=== PATIENT | female | born 1955 | race Caucasian/White ===

== ENCOUNTER 2018-06-25 17:35 | Observation (INO) | payer MEDICARE, MEDICAID ==
[~2018-06-25] VITALS: Ht 165.1 cm; Wt 118.4 kg
[~2018-06-25 17:35] MED LIST: AMLODIPINE BESY10 MG PO; AMLODIPINE BESYL5 MG PO; ATENOLOL100 MG PO; ATORVASTATIN CA10 MG PO; CETIRIZINE HCL10 MG PO; CINNAMON500 MG PO; DAILY MULTIPLE1 EACH PO; DOXAZOSIN MESYLA4 MG PO; DULOXETINE HCL30 MG PO; FLOVENT HFA12 G1 INH; FLUTICASONE PRO16 GM NS; GABAPENTIN300 MG PO; LISINOPRIL20 MG PO; METOPROLOL SUC100 MG PO; NEURONTIN300 MG PO; PAROXETINE HCL40 MG PO; PREDNISONE20 MG PO; PROVENTIL HFA6.7 GM INH; VITAMIN B-121000 MCG PO; VITAMIN D-32000 UNI1 PO; WARFARIN SODIUM5 MG PO
[2018-06-25] MEDS ORDERED: COUMADIN5 MG PO (17:54)
--- NOTE | 2018-06-25 22:19 | NUR ---
PT ARRIVED TO ROOM 119 FROM ED, FOLLOWING A FALL ON THE ICE. XRAYS REVEALED NO FRACTURES. PT REQUIRED MULT STAFF TO SLIDE HER OVER TO THE BED FROM THE STRETCHER, PT SCREAMED IN PAIN DURING EVENT. ONCE IN BED AND SITUATED, PT PAIN SUBSIDED. PT LIVES ALONE, AND UNABLE TO STAND D/T PAIN. PT REQUESTED LUNCH BOX, AND WATER. CALL LIGHT WITHIN REACH.
--- NOTE | 2018-06-25 23:44 | NUR ---
PT ARRIVED TO FLOOR VIA STRETCHER. PT TRANSFERED TO BED WITH MULTIPLE STAFF ASSISTANCE. PT VOCALIZED VERY LOUDLY DURING TRANSFER. STATES PAIN 10/10 WITH MOVEMENT, 0 IF NO MOVEMENT. PT OFFERED COMMODE, SHE STATES THAT SHE CANNOT STAND AT THIS TIME. PT ASSISTED TO TAKE UNDERGARMENTS OFF. ATTENDS PLACED FOR OCCASIONAL DRIBBLING INCONTINENCE PER PT. NO VISIBLE BRUISING OR DEFORMITY TO HIP. CMS INTACT. PT REQUESTS 7-UP, PROVIDED. PT DENIES FURTHER NEEDS AT THIS TIME. CALL LIGHT IN REACH.
--- NOTE | 2018-06-26 01:49 | NUR ---
PT UTILIZES CALL LIGHT, REQUESTS TO USE BSC. PT ASSISTED TO TRY TO GET UP WITH 3 PA. PT VOCALIZING/CALLING OUT LOUDLY IN PAIN THROUGHOUT ATTEMPT. PT GRABBING FORCEFULLY ON THIS WRITERS ARM. PT SHOUTING "I CAN'T DO IT" REPEATEDLY. PT REQUESTS TO USE THE BEDPAN VERSUS BSC. PT APOLOGETIC. ATTENDS WET WITH URINE. PT USES BEDPAN APPROPRIATELY. PT ASSESSMENT COMPLETE. LIDOCAINE PATCH IN PLACE TO L HIP. PT REQUESTS WARM COMPRESS. WARM COMPRESS PLACED BELOW LIDOCAINE PATCH. PT INSTRUCTED NOT TO PLACE COMPRESS OVER LIDOCAINE PATCH, UNDERSTANDING STATED. CMS INTACT TO LLE, PT DENIES NUMBNESS OR TINGLING. PT REQUESTS BENADRYL TO HELP SLEEP, ADMINISTERED. PT DENIES FURTHER NEEDS AT THIS TIME. CALL LIGHT WITHIN REACH.
--- NOTE | 2018-06-26 06:00 | NUR ---
PT UTILIZES CALL LIGHT, STATES THAT PAIN IS BEGINNING TO INCREASE EVEN WHILE SHE IS STILL. RATES PAIN 5/10 TO L HIP. PRN NORCO ADMINISTERED. PT REQUESTS TO USE THE BED CONLEY. PT ROLLS SIDE TO SIDE WELL, ALTHOUGH STILL SHOUTING IN PAIN WITH MOVEMENT. PT REPORTS THAT IT FEELS BETTER IF KNEE AND LEG ARE IN BENT POSITION. PILLOWS REMAIN UNDER L KNEE. PT DENIES FURTHER NEEDS AT THIS TIME. CALL LIGHT WITHIN REACH.
--- NOTE | 2018-06-26 07:29 | NUR ---
PT IN BED, AWAKE, ALERT. RECIEVED BEDSIDE REPORT FROM BRENDAN KOENIG. PT HAS PERSONAL SUPPLIES AND CALL LIGHT IN REACH.
--- NOTE | 2018-06-26 08:38 | NUR ---
PATIENT SITTING UP IN BED EATING BREAKFAST, REFUSED TO GET UP TO CHAIR. PATIENT WANTS BEDBATH LATER TODAY. CALL LIGHT IN REACH. NO FURTHER NEEDS AT THIS TIME.
--- NOTE | 2018-06-26 09:09 | NUR ---
PT TRANSFERED FROM BED TO RECLINER. USED FWW, AND 2 PERSON ASSIST. PT YELLED OUT, GRIMACING, GROANING, BUT WAS ABLE TO MOVE SELF FROM LAYING TO SITTING UP ON EDGE OF BED, AND WAS ABLE TO STAND, AND SLOWLY MOVE SELF FROM BED TO RECLINER. PT EXPRESSED RELIEF ONCE SITTING DOWN IN RECLINER, STATED THAT SHE FELT MUCH BETTER ONCE SHE SAT DOWN. PERSONAL SUPPLIES AND CALL LIGHT IN REACH.
--- NOTE | 2018-06-26 09:44 | NUR ---
PATIENT IN CHAIR WATCHING TV. CALL LIGHT IN REACH. NO FURTHER NEEDS AT THIS TIME.
--- NOTE | 2018-06-26 09:55 | NUR ---
PT SITTING UP IN RECLIER. REPORTED PAIN TO LEFT HIP AND LEFT LEG 5/10. GAVE NORCO 10/325 MG PO PRN. PT DENIED OTHER NEEDS AT THIS TIME. PERSONAL SUPPLIES AND CALL LIGHT IN REACH.
--- NOTE | 2018-06-26 10:05 | NUR ---
SPOKE WITH PATIENT IN ROOM. PATIENT SITTING UP IN CHAIR. PATIENT LIVES ALONE. HAS ELDERLY PARENTS IN AREA THAT LIVE IN ASSISTED LIVING. SHE STATES SHE HAS OTHER FAMILY IN [facility]. SHE HAS A FEW NEIGHBORS WHO HELP HER ON OCCASION. SHE IS DISABLED AND SHE IS WONDERING IF SHE WILL NEED A WALKER AT HOME. SHE STATES SHE IS NOT SURE HOW SHE CAN GET INTO HER APARTMENT, IT IS VERY ICY. SHE STATES SHE IS TRYING TO FIND SOMEONE WITH A [address] WHO CAN GET HER CLOSE TO HER DOOR. SHE STATES SHE HAS BEEN VERY SECLUDED AT HOME DUE TO THE WEATHER LATELY. SHE STATES SHE HAS CUT BACK ON SMOKING CIGARETTES DUE TO THIS AND SHE WANTS TO QUIT SMOKING COMPLETELY. WE DISCUSSED THIS, SHE WANTS TO TRY "[place]" BUT STATES SHE HAS A DR APPOINTMENT WITH PCP DR SMITH NEXT WEEK AND SHE WILL TALK WITH HER IF SHE NEEDS HELP. SHE STATES SHE HAS SOME INCONTINENCE ISSUES, WEARS A PAD FOR THIS. PATIENT BECAME VERY EMOTIONAL, CRYING AND TALKING ABOUT HOW SHE HAS BEEN VERY DEPRESSED. THAT SHE USED TO BE VERY OUTGOING AND WORKED IN [employer]. SHE STATES SHE HAS LET SO MANY THINGS "SLIDE IN MY LIFE". SHE STATES HER APARTMENT IS "CRAMMED" WITH BOXES AND IS VERY DIRTY. SHE WANTS HELP IN FIGURING OUT HOW TO GET IT CLEANED OUT. WE DISCUSSED THAT I CAN SET UP CHW SUPPORT THROUGH HER PCP AND THEY CAN WORK WITH HER ON RESOURCES. WE DISCUSSED SHE COULD SEEK HELP FOR DEPRESSION THROUGH LOCAL COUNSELORS AND/OR MENTAL HEALTH OFFICE. SHE IS WILLING TO WORK WITH SOMEONE. SHE STATES SHE FEELS "READY TO MAKE CHANGES". WE DISCUSSED THAT OUR GOAL IS WORK ON HER GOALS. SHE FEELS SAFE AT HER HOME AND WANTS TO RETURN THERE. WE DISCUSSED THAT WE WILL WORK WITH HER SO SHE CAN BE HEALTHY POSSIBLE AND BE ABLE TO TAKE CARE OF HERSELF AFTER DISCHARGE. WE DISCUSSED THAT SHE NEEDS TO UNDERSTAND ALL CARE HERE, TESTS, ETC. AND MEDICATIONS THAT SHE IS TAKING. WE DISCUSSED WE WILL HELP HER WITH UNDERSTANDING WHY SHE IS ON THE MEDICATIONS AND SIDE EFFECTS. PATIENT IS ENCOURAGED TO ASK QUESTIONS AND IF ANYTHING ISN'T UNDERSTOOD TO FEEL SHE CAN KEEP ASKING. WE DISCUSSED WHAT TO DO WHEN SHE GETS HOME, INCLUDING SET UP APPOITNMENT WITH CHW VISIT, LET US KNOW IF SHE HAS NO TRANSPORTTION TO HER DR VISIT, AND WHO TO CALL IF SHE HAS PROBLEMS. PATIENT STATES UNDERSTANDING TO ALL WE DISCUSSED.
[2018-06-26] MEDS ORDERED: PAROXETINE HCL40 MG PO (12:05)
--- NOTE | 2018-06-26 14:03 | NUR ---
PATIENT IN BED WATCHING TV. FRESH WATER GIVEN. CALL LIGHT IN REACH. NO FURTHER NEEDS AT THIS TIME.
--- NOTE | 2018-06-26 17:16 | NUR ---
PATIENT IN BED WATCHNG TV. DINNER IN ROOM. FRESH WATER GIVEN. CALL LIGHT IN REACH. NO FURTHER NEEDS AT THIS TIME.
--- NOTE | 2018-06-26 18:23 | NUR ---
PT UP WITH FWW WITH 1-2 PERSON ASSIST. PT EXPRESSED PAIN TO LEFT HIP AND LEG, THAT INCREASED WITH MOVEMENT, BUT PT DID EXPRESS THAT THIS PAIN GRADUALLY DECREASED OVER COURSE OF THE DAY, SHE MOVED AND SPENT TIME UP OUT OF BED AND WORKED WITH PHYSICAL THERAPY. PT TOOK A SHOWER THIS AM. ONLY REQUIRED ASSISTANCE WITH WASHING HER LOWER LEGS AND FEET WITH THIS. PT TOLERATED REGULAR DIET WELL. DID REQUIRE PRN NORCO 10/325 APROXIMATLEY EVERY 4 HOURS. PT DID ALSO START NICOTINE REPLACEMENT THIS SHIFT, HAS PATCH TO LEFT DELTOID AREA. PT IS UNSTEADY AT TIMES WHEN UP WITH FWW, LETS GO OF WALKER AT TIMES. REQUIRED REMINDERS NOT TO DO THIS. PT ALERT, ORIENTED X 4, ANXIOUS AT TIMES. PT REPORTS THAT SHE QUIT SMOKING 4 DAYS AGO. LUNGS CTA, PT HAS A PRODUCTIVE COUGH THIS AFTERNOON.
--- NOTE | 2018-06-26 19:28 | NUR ---
RECIEVED BEDSIDE REPORT FROM JORDAN CARDONA. PATIENT SITTING UP IN CHAIR. WHITE BOARD UPDATED. THIS RN ASSISTED PATIENT TO RESTROOOM A 1PA WITH FWW. PATIENT SAFELY BACK INTO BED. CALL LIGHT WITHIN REACH. NO MORE NEEDS AT THIS TIME. DINNER TRAY REMOVED FROM BEDSIDE.
--- NOTE | 2018-06-26 20:15 | NUR ---
ROUNDED ON PATIENT. [place]LL [place] MAGISTRATE PROVIDED PER PATIENT REQUEST. FRESH WATER PROVIDED TO PATIENT PER PATIENT REQUEST. CALL LIGHT WITHIN REACH. NO MORE NEEDS AT THIS TIME.
--- NOTE | 2018-06-26 21:50 | NUR ---
ASSESSMENT COMPLETE. PATIENT REPORTS "5/10" PAIN IN LEFT HIP, PRN PAIN MEDICATION ADMINISTERED. MEDICATION ADMINISTERED PER MAR ORDER. PATINET DENIES CHEST PAIN, SOB, OR DIFFICULTY BREATHING. PATINET DENIES ABDOMINAL PAIN, ACTIVE BOWEL TONES PRESENT. PILLOW PLACED UNDERNEATH LEFT LEG BY PATIENT. CALL LIGHT WITHIN REACH. NO MORE NEEDS AT THIS TIME.
--- NOTE | 2018-06-27 00:10 | NUR ---
ROUNDED ON PATIENT LAYING AWAKE IN BED. PATIENT DENIES PAIN. PATIENT DENIES WANTING MILK. THIS RN SUGGESTED RAISE THE HEAD OF THE BED UP, PATIENT STATED THIS WILL TRY THIS. CALL LIGHT WITHIN REACH. NO MORE NEEDS AT THIS TIME.
--- NOTE | 2018-06-27 02:55 | NUR ---
rounded on patient resting in bed with eyes closed, respiratory rate is even and unlabored. call light within reach. no more needs at this time.
--- NOTE | 2018-06-27 04:50 | NUR ---
ASSESSMENT COMPLETE, REFER TO ASSESSMENT. PATIENT REPORTS "5/10" PAIN IN LEFT HIP, PATIENT DESCRIBES PAIN "TIGHT", PRN PAIN MEDICATION PROVIDED. PATIENT DENIES CHEST PAIN, SOB OR DIFFICULT BREATHING. PATIENT REPORTS THAT HEARTBURN THAT PATIENT WAS EXPERIENCING EARILER IN SHIFT IMPROVED AFTER RECEVING SPRITE. EXPIRATORY WHEEZE NOTED, REFER TO ASSESSMENT, THIS RN NOTIFED RT. FRESH ICE PROVIDED TO PATIENT PER PATIENT REQUEST. PATIENT DENIES HAVING PRODUCTIVE COUGH THIS TIME. CALL LIGHT WITHIN REACH. NO MORE NEEDS AT THIS TIME.
--- NOTE | 2018-06-27 05:34 | NUR ---
PATIENT SLEPT ON AND OFF THROUGHOUT THE NIGHT. PRN PAIN MEDICATION X2. SBA TO 1PA WITH FWW. REGULAR DIET. REPORTED HEARTBURN LAST NIGHT, SPRITE PROVIDED, PATIENT REPORTED FEELING BETTER. PT/OT. RIGHT ARM RESTRICTION. USES CALL LIGHT APPROPRIATELY. ATTENDS IN PLACE.
--- NOTE | 2018-06-27 07:22 | NUR ---
RECIEVED BEDSIDE REPORT FROM BRENDAN DIAS. PT IN BED. PT UP TO BATHROOM TO VOID WITH STANDBY ASSIST USING FWW. PT THEN BACK TO BED. PERSONAL SUPPLIES AND CALL LIGHT IN REACH.
--- NOTE | 2018-06-27 10:07 | NUR ---
PAITENT UP TO SHOWER AND BACK TO CHAIR, 1PA FWW. LINENS CHANGED. FRESH WATER GIVEN. CALL LIGHT IN REACH. NO FURTHER NEEDS AT THIS TIME.
[2018-06-27] MEDS ORDERED: NICORETTE4 M2 BUCCAL (10:51)
[2018-06-27] MEDS ORDERED: GABAPENTIN100 MG PO (10:53)
[2018-06-27] MEDS ORDERED: HYDROCODON-ACE1 EAC8 PO (10:55)
[2018-06-27] MEDS ORDERED: NICOTINE PATCH1 EACH TD (10:55)
--- NOTE | 2018-06-27 11:24 | NUR ---
PT UP IN BATHROOM WITH OCCUPATIONAL THERAPY, DOING ADLS, BRUSHING TEETH. RATES PAIN TO LEFT HIP/LEG /. PT SMILING AND TALKING WITH OCCUPATIONAL THERAPIST.
--- NOTE | 2018-06-27 12:10 | NUR ---
THIS RN RETRIEVED PT'S HOME MEDICATION BAGS FROM ER DESK AND GAVE THESE TO PT. GAVE BAG # [id number], # [phone], AND # [id number].
--- NOTE | 2018-06-27 12:40 | NUR ---
FAXED CHART NOTES INCLUDING FACE SHEET, ORDER, H AND P, PROG NOTES, PT AND OT EVAL AND NOTES. RECIEVED FAX CONFIRMATION. TALKED WITH LILY FROM IN HOME AND SHE SAID IT MIGHT BE A BIT THEY ARE DOWN A PAINTER TODAY BUT WILL GET TO IT THIS AFTERNOON. I CALLED MARYSE BACK AND STATED THAT IF OK THEY PT IS JUST WANTING TO MOTOR VEHICLE LECTURER THE FWW AT THE STORE. MARYSE STATED THAT WOULD BE FINE.
[2018-06-27] MEDS ORDERED: METHYLPREDNISOLO4 M1 PO (13:25)
--- NOTE | 2018-06-27 13:42 | NUR ---
PT IN BED. REPORTS PAIN IS WELL CONTROLLED. IV TO LEFT AC D/C'D. PT DENIED NEEDS.
== END 2018-06-27 14:00 | disposition home or self-care (01) ==
LOC: ED 17:35 → MS 17:37
PROVIDERS: ADMIT Internal Medicine
DX: M25.552 Pain in left hip (principal); R26.81 Unsteadiness on feet; I10 Essential (primary) hypertension; E78.5 Hyperlipidemia, unspecified; F17.210 Nicotine dependence, cigarettes, uncomplicated; E66.9 Obesity, unspecified; I97.2 Postmastectomy lymphedema syndrome; W00.0XXA Fall on same level due to ice and snow, initial encounter; Y92.007 Garden or yard of unspecified non-institutional (private) residence as the place of occurrence of the external cause; Z86.718 Personal history of other venous thrombosis and embolism; Z79.01 Long term (current) use of anticoagulants; Z85.3 Personal history of malignant neoplasm of breast; Z88.1 Allergy status to other antibiotic agents; Z88.8 Allergy status to other drugs, medicaments and biological substances; Z79.51 Long term (current) use of inhaled steroids; Z79.899 Other long term (current) drug therapy; Z68.41 Body mass index [BMI] 40.0-44.9, adult
CPT/HCPCS: 36415; 72131; 73502; 73700; 80053; 85025; 85610; 96374; 96375; 96376; 97110; 97116; 97162; 97165; 99285-25; 99406; G0378; J1170; J2920; J2930; J3010; Q0163

== ENCOUNTER 2023-06-07 04:55 | Observation (INO) | payer MEDICARE, OTHER ==
[~2023-06-07] VITALS: Ht 167.6 cm; Wt 124.0 kg
--- NOTE | ~2023-06-07 | CONS ---
[facility] [address] [place], [place] [address] Draft DATE OF CONSULTATION: 06/07/2023 PROBLEM: Blunt trauma, right anterior chest wall with large hematoma, very symptomatic. HISTORY OF PRESENT ILLNESS: This morbidly obese 67-year-old white woman is chronically anticoagulated with Coumadin for reasons that are somewhat unclear, but not related to heart valve replacement or chronic atrial fibrillation. She has been anticoagulated for a number of years. She has a distant history of advanced breast cancer, having undergone bilateral mastectomies with adjuvant therapy nearly 30 years ago. Her original operation was at [facility]. She had open heart surgery 15 years ago for reasons that are uncertain. At that time, she was said to have a "blood clot in relation to a Port-A-Cath that was placed in the left subclavian area." She has been on warfarin since that time. Her primary provider is Dr. Acevedo. The patient has had arm edema, particularly on the right side, but also has had some left lower extremity edema for which evaluation has not yet been undertaken. This has been going on since February. She presented to the emergency room after falling in her bathroom, striking her right anterior chest wall on the corner of a sink. She did not have other injuries, specifically, no head trauma or loss of consciousness or other similar problem. She was found by Dr. Harley, emergency room physician to have a rather large hematoma of the right anterior chest wall and on that basis, a CT scan of the chest as well as head was performed. The head showed no sign of intracranial bleeding nor sign of other acute injury though volume loss of brain tissue was noted otherwise. There was a significant hematoma of the soft tissue of the right anterior chest wall, not far from the midline and approximately a handbreadth below the clavicle proper. There was not thought to be any sign of rib fracture based on the interpretation. A small stellate skin tear was noted as well. The patient has had significant pain and a sensation that the hematoma was growing. On that basis, I was consulted by Dr. Harley. My discussion with her notes that she has significant pain and worsen probably by her underlying general anxiety. Initiation of fresh frozen plasma to reverse her anticoagulation the quickest was recommended by me to the emergency room physician. Additionally, I recommend a repeat CBC be undertaken. Her initial hematocrit was 39.0, subsequent 33.1. A tox screen was essentially negative. Platelet count was normal at 246,000. An EKG showed normal sinus rhythm, heart rate 75, Q-waves in septal leads was consistent with septal infarct in the past. There was normal ST-segment and T-waves. There was no sign of infarction. PATIENT NAME: LATHA QUINN CONSULTATION DATE OF : 55 REPORT #: [id number] PHYSICIAN: CECILE SCHULTE MD PCP: ALBINA ACEVEDO MD REPORT IS CONFIDENTIAL AND NOT TO BE RELEASED WITHOUT AUTHORIZATION [facility] [address] [place] [id number] Draft REVIEW OF SYSTEMS: She denies any back pain. Her pain is dominantly over the right anterior chest wall. She has described some left lower extremity swelling. She says the etiology of which is uncertain. She has had chronic right arm edema as well. PHYSICAL EXAMINATION: GENERAL: Very obese white woman who is anxious. Her BMI is 44 kg/m2. HEENT: Trachea is midline. She has no hoarseness. There is no jugular venous distention. CHEST: There is sign of bilateral mastectomy from the past. There is a sizable hematoma over her right anterior chest wall. There is no sign of extravasation of blood. There is some underlying ecchymosis. ABDOMEN: Very obese, but soft and easily palpated. No sign of palpable mass. EXTREMITIES: Her right arm has some edema. Upper extremities, right is more swollen than on the left. The lower extremities were not thoroughly examined at this time. IMAGING DATA: I reviewed her imaging studies, which included head CT and chest CT scan. The soft tissue swelling in the neck and presumed hematoma is well demonstrated. There is no sign of underlying parenchymal injury, pneumothorax or rib fracture that I can tell, though the ribs to have a peculiar hyper-calcification likely related to previous median sternotomy. ASSESSMENT: The patient has a ground level fall on full anticoagulation with a sizable hematoma of the right anterior chest wall. The main issue that is quite symptomatic for her. She lives alone, has never been and has lost family members in the past few years rendering her assistance rather minimal. Whether or not the hematoma should be drained is uncertain at this time. Reversal of her anticoagulation is appropriate under the circumstances of possible ongoing bleeding given the expanded hematoma as noted by Dr. Harley as well as her increased pain. Direct admission to hospital may be advisable. We will recheck her anticoagulation studies to assure that she has been fully reversed. The indication for ongoing anticoagulation remained somewhat mysterious. She denies any underlying coagulopathy (thrombophilic state) and the relationship of clotting to a previous Port-A-Cath of the left chest wall (long ago extracted) remains somewhat mysterious. The patient is poorly able to articulate the indication for anticoagulation itself. Additional notes from primary care provider may provide some insight to that. PATIENT NAME: LATHA QUINN CONSULTATION DATE OF : 55 REPORT #: [id number] PHYSICIAN: CECILE SCHULTE MD PCP: ALBINA ACEVEDO MD REPORT IS CONFIDENTIAL AND NOT TO BE RELEASED WITHOUT AUTHORIZATION [facility] [address] [place], [place] [address] Draft MD TAMI Esparza/OTIS /[id number] cc: MD Albina Hebert MD Dr. Sadowitz Copies: HERBERT WHITTAKER MD, ROBERT D DMD ~ PATIENT NAME: LATHA QUINN CONSULTATION DATE OF : 55 REPORT #: [id number] PHYSICIAN: CECILE SCHULTE MD PCP: ALBINA ACEVEDO MD REPORT IS CONFIDENTIAL AND NOT TO BE RELEASED WITHOUT AUTHORIZATION
--- NOTE | ~2023-06-07 | OR ---
[facility] [address], [place] [address] Draft DATE OF OPERATION: 06/08/2023 SURGEON: Cecile Schulte MD PREOPERATIVE DIAGNOSES: 1. Symptomatic large right anterior chest wall hematoma secondary to ground level fall with chronic anticoagulation. 2. Morbid obesity. 3. History of bilateral mastectomy greater than 30 years ago (breast cancer). POSTOPERATIVE DIAGNOSES: 1. Symptomatic large right anterior chest wall hematoma secondary to ground level fall with chronic anticoagulation. 2. Morbid obesity. 3. History of bilateral mastectomy greater than 30 years ago (breast cancer). 4. Hematoma, 400 mL volume. PROCEDURE: Incision and drainage and debridement of right anterior chest wall including extraction of liquid and solidified hematoma 400 mL in total. ANESTHESIA: General endotracheal, Cecile Norman CRNA. DRAINS: 7 mm Dion. INDICATION: This 67-year-old morbidly obese white woman who lives alone, is chronically anticoagulated with Coumadin and is a patient of Dr. Albina Gamino. Indication for her anticoagulation is unclear to her but does not relate to implanted heart valve. Early yesterday morning on going into the bathroom, she slipped and fell, impaling her right anterior chest wall on the corner of a cabinet. She drove herself to the emergency room with an increasingly enlarging right anterior chest wall hematoma. It was exceedingly painful. A CT scan was performed of the head and the chest under the direction of Dr. Alonso, emergency room physician, which showed a normal cranium other than volume loss of the brain, but a sizable right anterior chest wall hematoma without associated fracture. The hematoma appeared to be expanding under the observation of Dr. Alonso and subsequently Dr. Dye, though ultimately stabilized. Her hematocrit did drop at least three points. Her INR was greater than 3.5. She was reversed as regard to her PATIENT NAME: LATHA QUINN OPERATIVE REPORT DATE OF : 55 REPORT #: [id number] PHYSICIAN: CECILE SCHULTE MD PCP: ALBINA GAMINO MD REPORT IS CONFIDENTIAL AND NOT TO BE RELEASED WITHOUT AUTHORIZATION [facility] [address], [place] [address] Draft anticoagulation with fresh frozen plasma, but additionally required vitamin K. She had exceptional pain related to the hematoma, worsened by her underlying anxiety disorder. Much of the pain has improved with intensive management. I have advocated for evacuation of the hematoma rather than allow for spontaneous resolution, though that certainly is an option in part because the overlying skin now has blistering indicative of the tenseness and tightness of the underlying hematoma in relation to the subcutaneous tissue and skin. The risk of bleeding, infection, ongoing bleeding, and other unforeseen complications related to the hematoma and its evacuation have been reviewed with her. She understands and wished to proceed. FINDINGS: Indeed there was both a gelatinous and liquid component to the hematoma. There was no sign of active bleeding. Extraction of 200 mL of clot and 200 mL of liquid venous bloody fluid was undertaken. The chest wall including ribs was from the overlying soft tissue including skin. Complete extraction of the clot was afforded. Good irrigation provided. No sign of infection. No sign of rib fracture or other concurrent injury. A drain was placed through a separate incision. DESCRIPTION OF PROCEDURE: The patient was brought to the operating room and given a general endotracheal anesthetic. She has a somewhat challenging airway based on her body habitus. Preoperative antibiotic Levaquin was given. Close inspection of the chest wall showed fair amount of ecchymosis and a blistering effect of the skin in the midportion with prominent hematoma. The size of the hematoma was as large as my open hand. Preparation of the chest wall was undertaken with Betadine based solution. After sterile draping, an incision was made in the inferior aspect of the hematoma. Dissection carried through the skin and subcutaneous tissue carefully and ultimately the inferior edge of the hematoma capsule incised. Noted was gelatinous clot which was extracted and additional clot suctioned free showing thin black liquid bloody fluid. An incision was extended somewhat to about 3 cm allowing for elevation of the flap, which had quite obviously free from the chest wall. Extraction of additional clot was undertaken with ring clamps. Irrigation was undertaken with sterile saline to that point that all spaces were adequately drained of hematoma. There was no sign of active bleeding or arterial bleeding. Irrigation was undertaken more fully and a small incision was made inferior to the initial incision allowing for placement of the 7 mm flat Dion drain. This was secured to the skin with nylon suture. A total of 400 mL of clot and liquified blood had been removed. The initial incision was closed with interrupted 2-0 Vicryl in deep subcutaneous layer and skin closed with running subcuticular 3-0 Vicryl. Bacitracin was applied to the area of prior skin compromise and blister and gauze was applied. Acticoat dressings were applied to the incision and the drain exit site. The drain was PATIENT NAME: LATHA QUINN OPERATIVE REPORT DATE OF : 55 REPORT #: [id number] PHYSICIAN: CECILE SCHULTE MD PCP: ALBINA GAMINO MD REPORT IS CONFIDENTIAL AND NOT TO BE RELEASED WITHOUT AUTHORIZATION [place] [id number] Draft attached to bulb suction. The patient tolerated the procedure well, was ultimately extubated and transferred to the recovery room in good condition having suffered no known complications. MD TAMI Esparza/OTIS /[id number] cc: MD Andrei Pollock MD John Elliott, MD Copies: ALBINA GAMINO DMD, MICHAEL MD ~ PATIENT NAME: LATHA QUINN OPERATIVE REPORT DATE OF : 55 REPORT #: [id number] PHYSICIAN: CECILE SCHULTE MD PCP: ALBINA GAMINO MD REPORT IS CONFIDENTIAL AND NOT TO BE RELEASED WITHOUT AUTHORIZATION
--- NOTE | ~2023-06-07 | DS ---
[facility] [address] [place], [place] [address] Draft ADMISSION DATE: 06/07/2023 DISCHARGE DATE: 06/09/2023 REASON FOR ADMISSION: This 67-year-old morbidly obese white woman, who is status post bilateral mastectomy greater than 25 years ago for breast cancer and has chronic right arm edema is chronically anticoagulated with Coumadin for reasons that are not entirely clear but not related to valvular implant or other indication. She slipped in her bathroom, impaling her right chest wall against the corner of a cabinet causing swelling where she presents to the emergency room. She was evaluated by Dr. Alonso and subsequently Dr. Dye and found to have a very large and initially expanding hematoma of the right chest wall. Her INR was greater than 3.5. She was admitted for further evaluation and care. PERTINENT PHYSICAL EXAMINATION: GENERAL: Showed a morbidly obese BMI of 44.1 white woman who was quite uncomfortable. She had a fair amount of anxiety as well. NECK: The trachea was midline. There is no sign of bony abnormality of the clavicle or chest wall. CHEST: Shows normal respiratory excursion. Pulse was regular without evidence of atrial dysrhythmia. There is a sizable mound over her right anterior chest wall just to the right of the midline in the upper anterior chest consistent with hematoma, which was markedly tender and with some ecchymosis and skin discontinuity. CT scan showed findings consistent with hematoma without sign of rib fracture or underlying pulmonary injury. LABORATORY DATA: Her initial hematocrit was 39, soon thereafter 33.1 with normal platelet count of 246,000. Coag studies showing an INR of 3.63. Toxicology report negative for COVID or RSV. Urinalysis which was normal. A creatinine which was initially 1.[address] scan as previously noted. Additionally, a head CT was negative for sign of intracranial mass, lesion, or bleeding. There was some volume loss of the substance of the brain. HOSPITAL COURSE: The patient was admitted to the hospital after initiating a reversal of anticoagulation with fresh frozen plasma and subsequently vitamin K 5 mg. Although the hematoma appeared to be stable, it was quite large and extremely painful and causing overlying pressure necrosis of the skin including blistering. On that basis on June 08, 2023, she underwent evacuation of the hematoma, where both clot and liquid bloody fluid was extracted 400 mL in total. A drain was placed through a separate incision. PATIENT NAME: LATHA QUINN DISCHARGE SUMMARY DATE OF : 55 REPORT #: [id number] PHYSICIAN: CECILE SCHULTE MD PCP: ALBINA GAMINO MD REPORT IS CONFIDENTIAL AND NOT TO BE RELEASED WITHOUT AUTHORIZATION [facility] [address] [place] [id number] Draft The patient had immediate relief of her pain following the drainage procedure. She was monitored and at this time is now ready to be discharged home. The desquamation of her skin was managed with bacitracin and plain gauze. It is anticipated that her anticoagulation will be restarted after next week once further bleeding has been eliminated as an ongoing issue. DISCHARGE INSTRUCTIONS: The patient to strip monitoring and record the Dion drain output on a daily basis. We will remove the drain based on those findings as an outpatient. She is permitted to use her right arm; recall that it does have chronic lymphedema from prior breast cancer intervention. She should avoid direct trauma to the chest wall. She will remove her Acticoat dressing tomorrow, the Steri-Strips in place and change the open desquamated area with plain gauze and bacitracin on a daily basis. DISCHARGE MEDICATIONS: Will include: 1. Nicotine lozenges 4 mg q. hour as needed for tobacco withdrawal. 2. Oxycodone/Tylenol 7.5/325 1-2 p.o. q.6 hours p.r.n. pain. 3. Tylenol 500 mg two tablets p.o. q.6 hours p.r.n. pain. 4. Bacitracin 500 units/g topically applied daily. 5. Continue cetirizine 1 tablet p.o. daily 10 mg. 6. Albuterol Proventil inhaler two puffs q.6 hours as needed for pain. 7. Fluticasone one spray daily p.r.n. allergies. 8. Doxazosin 4 mg tablets p.o. daily. 9. Methyl B12 5000 mcg two tablets p.o. daily. 10. Multivitamin one tablet p.o. daily. 11. Metoprolol 100 mg extended release one p.o. daily. 12. Amlodipine 10 mg p.o. daily. 13. Cinnamon 500 mg capsule two tablets p.o. daily. 14. Bupropion XL 300 mg p.o. at bedtime with an additional 150 mg p.o. at bedtime. 15. Duloxetine 60 mg p.o. daily. 16. Gabapentin 300 mg two tablets p.o. at bedtime. 17. Potassium chloride 20 mEq p.o. b.i.d. 18. Torsemide 10 mg p.o. daily. 19. Atorvastatin 20 mg p.o. daily. 20. p.o. at bedtime, 25 mg. 21. Vitamin D2 one tablet of 50,000 units p.o. q. week. 22. Metformin extended release 500 mg p.o. q. day x2. 23. mg two tablets p.o. daily. PATIENT NAME: LATHA QUINN DISCHARGE SUMMARY DATE OF : 55 REPORT #: [id number] PHYSICIAN: CECILE SCHULTE MD PCP: ALBINA GAMINO MD REPORT IS CONFIDENTIAL AND NOT TO BE RELEASED WITHOUT AUTHORIZATION [facility] [address] [place], [place] [address] Draft 24. Duloxetine 30 mg p.o. at bedtime. DISCHARGE DIAGNOSES: 1. Blunt force trauma to anterior chest wall with resultant symptomatic large chest wall hematoma without associated pneumothorax or rib fracture, status post drainage and placement of drain after irrigation in June 08, 2023. 2. Distant history of bilateral mastectomy for malignancy ([facility] greater than 25 years ago). 3. Morbid obesity. 4. Anxiety disorder. 5. Diabetes mellitus. 6. Dyslipidemia. 7. Hypertension. 8. Chronic anticoagulation for uncertain reasons, not associated with mechanical heart valve. FOLLOWUP PLAN: She will see me in the next 4 to 10 days for removal of the drain and assessment of her wound. If she has problems in the meantime, she will let us know. She will not initiate Coumadin for the time being depending on findings of the drainage output once seen in the office. MD TAMI Esparza/OTIS /[id number] cc: Albina Gamino MD Copies: ALBINA GAMINO DMD ~ PATIENT NAME: LATHA QUINN DISCHARGE SUMMARY DATE OF : 55 REPORT #: [id number] PHYSICIAN: CECILE SCHULTE MD PCP: ALBINA GAMINO MD REPORT IS CONFIDENTIAL AND NOT TO BE RELEASED WITHOUT AUTHORIZATION
[~2023-06-07 04:55] MED LIST changes: +BUPROPION XL300 MG PO; -DAILY MULTIPLE1 EACH PO; +DULOXETINE HCL60 MG PO; +GABAPENTIN100 MG PO; +GLIPIZIDE10 MG PO; +HYDROCODON-ACE1 EAC8 PO; +METFORMIN HCL1000 MG PO; +METHYL B PO; +METHYLPREDNISOLO4 M1 PO; +MULTI VITAMIN1 EACH PO; +NICORETTE4 M2 BUCCAL; +NICOTINE PATCH1 EACH TD; +OZEMPIC0.25 MG/0. SUB-Q; +RYBELSUS7 MG PO; +TOPIRAMATE25 MG PO; -VITAMIN B-121000 MCG PO
--- OUTSIDE RECORDS SUMMARY | 2023-06-07 04:59 | XMS ---
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 - Patient eloped before treatment completed. - Patient with suicidal and/or homicidal ideations eloped. Details: Patient LWBS. CRITERIA MET - Group Notification CARE PROVIDERS There are no care providers on record at this time. Laila has no Care Guidelines for this patient. E.D. VISIT COUNT (12 MO.) 3 [facility]. TOTAL 3 NOTE: Visits indicate total known visits. ED/C VISIT TRACKING (12 MO.) 06/07/2023 04:56 [facility] TYPE: Emergency COMPLAINT: - FALL 04/09/2023 08:39 [facility] TYPE: Emergency COMPLAINT: - L PAIN LEG AND IT PURPLE DIAGNOSES: - Allergy status to other antibiotic agents - Allergy status to other drugs, medicaments and biological substances - Essential (primary) hypertension - Localized edema - intermediate project manager (current) use of anticoagulants - Nicotine dependence, unspecified, uncomplicated - Other retirement (current) drug therapy - Type 2 diabetes mellitus without complications 04/08/2023 13:58 [facility] [place] TYPE: Emergency COMPLAINT: - POSS BLOODCLOT L LEG INPATIENT VISIT TRACKING (12 MO.) No inpatient visits to display in this time frame [email or web address]
[2023-06-07] MEDS ORDERED: DIPHTH,PERTUSS(ACELL),TET VAC 0.5 ML SYRINGE IM ONE (05:15)
[2023-06-07 05:29] LABS: BASOPHILS 1.4 % (0-2); EOSINOPHILS 2.9 % (0-6); HEMOGLOBIN 12.7 g/dL (12.0-18.0); LYMPHOCYTES 34.8 % (24-44); MCH 29.3 (27-36); MCHC 32.5 g/dl (30-36); MONOCYTES 8.9 % (0-12); PLATELET COUNT 293 K/uL (140-440); RBC 4.34 M/ul (4.3-5.7)
[2023-06-07 05:40] LABS: ALBUMIN 3.1 g/dL (3.4-5.0); ALBUMIN/GLOBULIN RATIO 0.74 (1.1-2.4); ALCOHOL, MEDICAL <3 ng/dL (<3); ALKALINE PHOSPHATASE 111 U/L (46-116); ALT (SGPT) 21 U/L (14-59); AST (SGOT) 20 U/L (15-37); BILIRUBIN, TOTAL 0.3 ng/dL (0.2-1.0); BUN/CREATININE RATIO 12.38 (6.0-28.6); CALCIUM 9.7 mg/dL (8.5-10.1); CARBON DIOXIDE 28 mmol/L (21-32); CHLORIDE 102 mmol/L (98-107); CREATININE, SERUM 1.13 mg/dL (0.55-1.02); GLOMERULAR FILTRATION RATE,EST 53 mL/min (>60); PROTEIN, TOTAL 7.3 g/dL (6.4-8.2); UREA NITROGEN 14 mg/dL (7-18)
[2023-06-07 05:48] LABS: INR 3.63 (0.80-1.30); PROTIME 35.9 Sec (11.2-14.2)
[2023-06-07 05:58] LABS: ABO A; ANTIBODY SCREEN NEGATIVE; RH POSITIVE
[2023-06-07] MEDS ORDERED: ACETAMINOPHEN 500 MG TAB PO ONE (06:15)
[2023-06-07] MEDS ORDERED: POTASSIUM CHLORIDE 10 MEQ TABCR PO ONE (06:15)
[2023-06-07] MEDS ORDERED: K-TAB ER20 MEQ PO (06:16)
[2023-06-07 06:17] LABS: BILIRUBIN, URINE NEGATIVE (negative); BLOOD/HGB, URINE NEGATIVE (Negative); KETONE, URINE NEGATIVE (Negative); LEUK ESTERASE, URINE NEGATIVE (negative); NITRITE, URINE NEGATIVE (negative); PH, URINE 6.5 (5-7)
[2023-06-07] MEDS ORDERED: MORPHINE SULFATE 4 MG/ML VIAL IV ONE (06:30)
[2023-06-07 06:36] LABS: AMPHETAMINES, URINE NEGATIVE (NEGATIVE); BARBITURATES, URINE NEGATIVE (NEGATIVE); BENZODIAZEPINE, URINE NEGATIVE (NEGATIVE); BUPRENORPHINE, URINE NEGATIVE (NEGATIVE); CANNABINOID, URINE POSITIVE (NEGATIVE); COCAINE, URINE NEGATIVE (NEGATIVE); ECSTASY, URINE NEGATIVE (NEGATIVE); FENTANYL, URINE NEGATIVE (NEGATIVE); METHADONE, URINE NEGATIVE (NEGATIVE); OPIATES, URINE NEGATIVE (NEGATIVE); OXYCODONE, URINE NEGATIVE (NEGATIVE); PHENCYCLIDINE, URINE NEGATIVE (NEGATIVE)
[2023-06-07] MEDS ORDERED: HYDROmorphone HCL 1 MG/ML SYR IV PRN (07:00)
[2023-06-07 07:36] LABS: ABO A
[2023-06-07 07:37] LABS: RH POSITIVE
[2023-06-07 08:31] LABS: EOSINOPHILS 1.3 % (0-6); HEMATOCRIT 33.1 % (35.0-50.0); HEMOGLOBIN 11.1 g/dL (12.0-18.0); LYMPHOCYTES 30.1 % (24-44); MCH 29.9 (27-36); MCHC 33.6 g/dl (30-36); NEUTROPHILS 57.6 % (39-80); PLATELET COUNT 246 K/uL (140-440); RBC 3.71 M/ul (4.3-5.7); RDW 14.5 (10.5-15.0)
[2023-06-07] MEDS ORDERED: LACTATED RINGER'S 1,000 ML IV PRN ×2 (08:45)
[2023-06-07 11:54] VITALS: BP 146/78
--- NOTE | 2023-06-07 12:07 | NUR ---
ROUNDS. PT RECEIVING NURSING CARE. DID NOT INTERRUPT. PROVIDED PRAYER.
--- NOTE | 2023-06-07 12:16 | NUR ---
PT TO ROOM FROM ER PER STRETCHER AND ER STAFF. REPORT RECEIVED. PT STATES SHE FELL THIS MORNING IN HER BATHROOM AFTER TRIPPING ON HER RUG AND HIT HER CHEST ON THE COUNTER. ICE APPLIED TO HEMATOMA SITE. PT ALSO HAS DRSG TO HEMATOMA, HAS SMALL SKIN TEAR ON TOP OF HEMATOMA. PT STATES SHE HAS BEEN STRUGGLING WITH LYMPHADEMA IN HER RUE AND LLE AND THAT HER LLE EDEMA IS MUCH IMPROVED, BUT HER LLE IS DIFFICULT TO COORDINATE MOVEMENT WITH AT TIMES. CALL LIGHT WITHIN REACH AND PT REMINDED TO CALL STAFF BEFORE GETTING OUT OF BED.
[2023-06-07] MEDS ORDERED: FAMOTIDINE 20 MG/ 2 ML VIAL IV SCH ×2 (12:21)
[2023-06-07] MEDS ORDERED: PROCHLORPERAZINE EDISYLATE 10 MG/2 ML VIAL IV PRN ×2 (12:30)
[2023-06-07] MEDS ORDERED: LACTATED RINGER'S 1,000 ML IV SCH ×2 (12:30)
[2023-06-07] MEDS ORDERED: MORPHINE SULFATE 10 MG/ML VIAL IV PRN ×2 (12:30)
[2023-06-07] MEDS ORDERED: ondansetron HCL 4 MG/2 ML VIAL IV PRN ×2 (12:30)
--- NOTE | 2023-06-07 12:53 | NUR ---
UR NOTE OBSERVATION, GENERAL FOR ANTERIOR CHEST HEMATOMA GLF IV MEDICATIONS, REPEAT LABS, MONITOR BLEEDING, VS
--- NOTE | 2023-06-07 12:54 | NUR ---
PER BRANDON AT [facility] PATIENT HAS BEEN ACCEPTED. SHE WILL NEED TIME TO GET A BARIATRIC BED AND REQUEST CASE MANAGEMENT CHECK WITH HER IN THE AM. PATIENT WILL REQUIRE NEGATIVE COVID TEST ON THE DAY OF TRANSFER.
[2023-06-07 13:10] LABS: INR 2.1 (0.80-1.30); PROTIME 23.2 Sec (11.2-14.2)
--- NOTE | 2023-06-07 13:13 | NUR ---
MED GIVEN FOR PAIN. PAIN IS COMING FROM HEMATOMA ON CENTER OF PT'S CHEST. WILL REASSESS LATER. PT ALERT AND ORIENTED, RESPIRATIONS EVEN AND UNLABORED.
--- NOTE | 2023-06-07 13:26 | NUR ---
IN PATIENT RN. RADHA RN AND DACIA RN AT THE BEDSIDE. CASE MANAGEMENT ASSESSMENT COMPLETE. PATIENT LIVE ALONE IN A BASEMENT APARTMENT. SHE STATES SHE HAS 1 STEP INTO THE HOME. PATIENT DOES HAVE A WALKER AND CANE AT HOME FROM PREVIOUS SURGERIES, BUT DOES NOT USE THEM. PATIENT STATES SHE HAS FRIENDS THAT SHE CAN STAY WITH AT DISCHARGE, [place] IS NORMALLY INDEPENDENT. PATIENT DRIVES AND SHOPS FOR HERSELF. SHE STATES SHE HAS RECENTLY LOST HER PARENTS AND SISTER OVER THE PAST YEAR, WHICH HAS MADE HER VERY PROACTIVE WITH LIFE PLANNING. PATIENT HAS AN ADVANCE DIRECTIVE THAT SHE WILL UPDATE WITH NEW CONTACT INFORMATION HER FAMILY IS ALL . DISCUSSED THE DIFFERENCE BETWEEN A POLST FORM AND POA. ENCOURAGED PATIENT TO FILL OUT A POLST. SHE STATES SHE HAS AN APPOINTMENT WITH DR. ACEVEDO NEXT WEEK AND WILL MAKE SURE TO COMPLETE A POLST. PATIENT HAS AN APPOINTMENT FOR ENERGY ASSISTANCE WITH [facility] NEXT WEEK, BUT NO OTHER FINANCIAL CONCERNS. SHE STATES SHE WOULD EVENTUALLY LIKE TO MOVE INTO [facility] AND WILL BE APPLYING FOR THEIR WAITING LIST SOON. PATIENT APPEARS PAINFUL DURING CONVERSATION, STATES SHE HAS TALKED WITH HER RN ABOUT THIS ALREADY. WILL CONTINUE TO VISIT WITH PATIENT DURING HER VISIT.
[2023-06-07 13:47] VITALS: BP 168/61
[2023-06-07] MEDS ORDERED: TRAMADOL HCL50 MG PO (13:55)
[2023-06-07] MEDS ORDERED: BUPROPION XL150 MG PO (13:55)
[2023-06-07] MEDS ORDERED: TORSEMIDE10 MG PO (13:57)
[2023-06-07] MEDS ORDERED: ATORVASTATIN CA20 MG PO (14:06)
[2023-06-07] MEDS ORDERED: QUETIAPINE FUMA25 MG PO (14:08)
[2023-06-07] MEDS ORDERED: VITAMIN D21250 MCG PO (14:09)
[2023-06-07] MEDS ORDERED: METFORMIN HCL500 M1 PO (14:10)
[2023-06-07] MEDS ORDERED: RYBELSUS14 MG PO (14:11)
[2023-06-07] MEDS ORDERED: DULOXETINE HCL30 MG PO (14:16)
[2023-06-07] MEDS ORDERED: buPROPion HCL XL 150 MG TAB.XL.24H PO SCH ×2 (14:43)
[2023-06-07] MEDS ORDERED: AMLODIPINE BESYLATE 10 MG TAB PO SCH ×2 (14:43)
[2023-06-07] MEDS ORDERED: buPROPion HCL XL 300 MG TAB.XL.24H PO SCH ×2 (14:44)
[2023-06-07] MEDS ORDERED: DOXAZOSIN MESYLATE 4 MG TAB PO SCH ×2 (14:44)
[2023-06-07] MEDS ORDERED: DULOXETINE HCL 60 MG CAP PO SCH ×2 (14:45)
[2023-06-07] MEDS ORDERED: INHALER, ASSIST DEVICES 1 EACH SPACER MISC ONE ×2 (14:45)
[2023-06-07] MEDS ORDERED: FLUTICASONE PROPIONATE 50 MCG BTL NAS PRN ×2 (14:46)
[2023-06-07] MEDS ORDERED: METOPROLOL SUCCINATE 100 MG TABCR PO SCH ×2 (14:47)
--- NOTE | 2023-06-07 14:49 | NUR ---
medication given for pain 10 from chest hematoma. pt states doctor geovanna was just recently in to see her.
[2023-06-07] MEDS ORDERED: TORSEMIDE 5 MG TAB PO SCH ×2 (14:50)
[2023-06-07] MEDS ORDERED: NICOTINE POLACRILEX 4 MG LOZENGE BUCCAL PRN ×2 (15:00)
[2023-06-07] MEDS ORDERED: DEXTROSE 5% 1,000 ML IV PRN ×2 (15:00)
[2023-06-07] MEDS ORDERED: ACETAMINOPHEN 500 MG TAB PO PRN ×2 (15:00)
[2023-06-07] MEDS ORDERED: MAGNESIUM SULFATE 2 GM/50 ML BAG IV ONE ×2 (15:00)
[2023-06-07] MEDS ORDERED: HYDROmorphone HCL 4 MG TAB PO PRN ×2 (15:00)
[2023-06-07] MEDS ORDERED: DEXTROSE 50% 50 ML SYR IV PRN ×4 (15:00)
[2023-06-07] MEDS ORDERED: GLUCAGON,HUMAN RECOMBINANT 1 MG/ML VIAL SUB-Q PRN ×2 (15:00)
[2023-06-07] MEDS ORDERED: POTASSIUM CHLORIDE 20 MEQ,LIDOCAINE HCL 1% 20 MG in DEXTROSE 5% 250 ML IV SCH ×2 (15:00)
[2023-06-07] MEDS ORDERED: TRAMADOL HCL 50 MG TAB PO PRN ×2 (15:00)
[2023-06-07] MEDS ORDERED: IBLOOD GLUCOSE TEST STRIP 1 EA TEST XX PRN ×2 (15:00)
[2023-06-07] MEDS ORDERED: DULOXETINE HCL 30 MG CAP PO SCH ×2 (15:00)
--- NOTE | 2023-06-07 15:28 | NUR ---
MED REC COMPLETE
[2023-06-07] MEDS ORDERED: PHYTONADIONE IV ONE ×2 (15:30)
[2023-06-07] MEDS ORDERED: DEXTROSE 5% IV ONE ×2 (15:30)
--- NOTE | 2023-06-07 15:59 | NUR ---
med given fpr pain, pt alert and awakw
[2023-06-07] MEDS ORDERED: ALBUTEROL SULFATE 0.083% 3 ML VIAL INH PRN ×2 (16:00)
--- NOTE | 2023-06-07 16:09 | NUR ---
SWETA IN PHARMACY NOTIFIED THAT PT STATES SHE TOOK ALL OF HER MORNING MEDICATIONS PRIOR TO COMING TO THE ER THIS MORNING AND THAT SHE WILL ONLY NEED TO TAKE HER "NIGHT MEDICATIONS" BEFORE BED.
--- NOTE | 2023-06-07 16:28 | NUR ---
pt states pain is starting to decrease. is currently 5/10. will continue to monitor. pt is awake and alert with respirations even and unlabored.
--- NOTE | 2023-06-07 16:56 | NUR ---
HEMATOMA OUTLINED ON CHEST.
[2023-06-07] MEDS ORDERED: POTASSIUM CHLORIDE 10 MEQ TABCR PO SCH ×2 (17:00)
[2023-06-07] MEDS ORDERED: Insulin Regular, Human 100 UNIT/ML ML SUB-Q SCH ×4 (17:30→20:00)
[2023-06-07] MEDS ORDERED: IBLOOD GLUCOSE TEST STRIP 1 EA TEST XX SCH ×4 (17:30→20:00)
--- NOTE | 2023-06-07 17:36 | NUR ---
PT SITTING UP IN BED EATING DINNER, CALL LIGHT WITHIN REACH.
[2023-06-07 18:31] VITALS: BP 156/95
--- NOTE | 2023-06-07 19:35 | NUR ---
@1900 RECEIVED REPORT AND ASSUMED CARE. WHITE BOARD UPDATED AT THIS TIME. PT WITH EYES CLOSED, RESP EVEN AND UNLABORED. IV LEFT HAND,WNL, INFUSING POTASSIUM INFUSION.
--- NOTE | 2023-06-07 20:10 | NUR ---
MEDICATED WITH PO PAIN MEDICATION FOR 10 [facility] INJURY SITE. AREA CONTINUES WITHIN THE MARKED AREA.
--- NOTE | 2023-06-07 20:10 | NUR ---
COMPAINED OF PAIN, MED WITH 4 MG DILAUDID. GAUZE OVER CENTER OF CHEST ABRASION, SWOLLEN. WITHIN MARKED AREA CONTINUES.
[2023-06-07 20:16] VITALS: BP 153/78
[2023-06-07 20:19] LABS: ANION GAP 12.5 (7-21); BUN/CREATININE RATIO 13.15 (6.0-28.6); CALCIUM 8.8 mg/dL (8.5-10.1); CREATININE, SERUM 0.76 mg/dL (0.55-1.02); INR 1.69 (0.80-1.30); MAGNESIUM 2.1 mg/dL (1.8-2.4); POTASSIUM 5.5 mmol/L (3.5-5.1); PROTIME 19.5 Sec (11.2-14.2)
[2023-06-07] MEDS ORDERED: TOPIRAMATE 25 MG TAB PO SCH ×2 (21:00)
[2023-06-07] MEDS ORDERED: GABAPENTIN 300 MG CAP PO SCH ×2 (21:00)
[2023-06-07] MEDS ORDERED: QUETIAPINE FUMARATE 25 MG TAB PO SCH ×2 (21:00)
[2023-06-07] MEDS ORDERED: ATORVASTATIN 20 MG TAB PO SCH ×2 (21:00)
--- NOTE | 2023-06-07 21:00 | NUR ---
NOTIFIED DR SCHULTE OF PT/INR RESULTS. PLANS AT THIS TIME TO TAKE HER TO SURGERY, DID REORDER PT/INR FOR MORNING. WILL BE NPO AFTERMIDNIGHT. PT REQUESTED INDIGESTION MEDICATION, SEE MARS.
--- NOTE | 2023-06-07 21:06 | EKG ---
[facility] [address] [place] [address] Signed Normal sinus rhythm Low voltage QRS Septal infarct , age undetermined Abnormal ECG When compared with ECG of 18-AUG-2016 09:07, Septal infarct is now present Confirmed by Lilia Oliveira MD () on 06/07/2023 9:06:40 PM Electronically Signed By: LILIA OLIVEIRA MD 06/07/232105 PATIENT NAME: KAILATHA TABITHA Electrocardiogram DATE OF : 55 PHYSICIAN: LILIA OLIVEIRA MD REPORT #: [id number] REPORT IS CONFIDENTIAL AND NOT TO BE RELEASED WITHOUT AUTHORIZATION
[2023-06-07] MEDS ORDERED: SIMETHICONE 40 MG/0.6 ML ML PO PRN ×2 (21:15)
[2023-06-07] MEDS ORDERED: SIMETHICONE 125 MG TABLET CHEWABLE PO PRN ×2 (21:30)
--- NOTE | 2023-06-07 21:30 | NUR ---
COMPLAINS OF CONTINUED PAIN, OFFERED MORPHINE, OR THE PO DILAUDID, CHOSE DILAUDID, GAVE 4 MG.
--- NOTE | 2023-06-07 22:20 | NUR ---
CHECKED ON PT, STATES PAIN IS DECREASED TO 5-6, ON PHONE, DID STATE THAT SHE THOUGHT SHE MIGHT HAVE FELL ASLEEP. DRANK A GLYCERNA, IS AWARE SHE IS NPO AT MIDNIGHT.
--- NOTE | 2023-06-07 23:42 | NUR ---
REPORT RECIEVED FROM OBIE CARDONA. pt RESTING IN THE BED. RR EVEN AND UNLABORED. CALL LIGHT WITHIN REACH.
--- NOTE | 2023-06-07 23:56 | NUR ---
PATIENT CALLED STATING "MY PAD IS WET". FRESH CHUX AND NEW PUREWICK IN PLACED AFTER CLEANED UP. 1PA. PATIENT ABLE TO HELP TURNING SIDE TO SIDE. WATER CUP REMOVED. NPO AT 0000. NO OTHER NEEDS AT THIS TIME. CALL LIGHT AND SIDE TABLE WITHIN REACH. PATIENT REQUESTED TO BE OFF FROM SCD'S AT THIS TIME. PRIMARY RN NOTIFIED.
[2023-06-08] VITALS (12 sets, daily range): BP systolic 112–158; BP diastolic 48–85
--- NOTE | 2023-06-08 01:59 | NUR ---
ASSESSMENT AND VITAL SIGNS DONE. pt RESTING IN THE BED. PURE WICK IN PLACE. pt ABLE TO USE IT APPROPRIATLY. pt C/O 10/02 PAIN. PRN MEDICATION ADMINISTERED. HEMATOMA STILL IN MARKED AREA. pt DENIES ANY OTHER NEEDS AT THIS TIME. CALL LIGHT WITHIN REACH.
--- NOTE | 2023-06-08 03:50 | NUR ---
pt IV ALARMING DISTAL OCCLUSION. pt STATES SHE ROLLED OVER ON IT. IV FIXED. pt DENIES ANY OTHER NEEDS AT THIS TIME. CALL LIGHT WITH IN REACH.
[2023-06-08 05:47] LABS: BASOPHILS 1.1 % (0-2); EOSINOPHILS 3.1 % (0-6); HEMATOCRIT 31.1 % (35.0-50.0); HEMOGLOBIN 10.3 g/dL (12.0-18.0); LYMPHOCYTES 36.6 % (24-44); MCH 29.7 (27-36); MCHC 33.2 g/dl (30-36); MCV 89.6 fl (81-99); MONOCYTES 10.7 % (0-12); NEUTROPHILS 48.5 % (39-80); PLATELET COUNT 223 K/uL (140-440); RBC 3.47 M/ul (4.3-5.7); RDW 14.9 (10.5-15.0)
[2023-06-08 05:56] LABS: ANION GAP 12.1 (7-21); BUN/CREATININE RATIO 10.25 (6.0-28.6); CALCIUM 9.5 mg/dL (8.5-10.1); CREATININE, SERUM 0.78 mg/dL (0.55-1.02); POTASSIUM 4.1 mmol/L (3.5-5.1)
[2023-06-08] MEDS ORDERED: levoFLOXacin 500 MG/100 ML BAG IV ONE ×2 (06:00)
[2023-06-08 06:01] LABS: INR 1.31 (0.80-1.30); PROTIME 15.8 Sec (11.2-14.2)
--- NOTE | 2023-06-08 06:15 | NUR ---
pt IV'S DC'D DUE TO INFLILTRATION. pt IS A HARD START. E COMMERCE MARKETING MANAGER IS OK WITH IV BEING LEFT OUT UNTIL DAYSHIFT RN ARRIVE TO PLACE US IV. pt DENIES ANY OTHER NEEDS AT THIS TIME.
[2023-06-08] MEDS ORDERED: METOCLOPRAMIDE HCL 10 MG/2 ML SDV ONE (06:57)
[2023-06-08] MEDS ORDERED: propofoL 200 MG/20 ML VIAL ONE (06:57)
[2023-06-08] MEDS ORDERED: LIDOCAINE HCL 4% 5 ML AMP ONE (06:57)
[2023-06-08] MEDS ORDERED: SUCCINYLCHOLINE IN 0.9% NACL 200 MG/10 ML SYRINGE ONE (06:57)
[2023-06-08] MEDS ORDERED: ondansetron HCL 4 MG/2 ML VIAL ONE (06:57)
[2023-06-08] MEDS ORDERED: ROCURONIUM BROMIDE 50 MG/5 ML SYR ONE (06:57)
[2023-06-08] MEDS ORDERED: DEXAMETHASONE SOD PHOS 4 MG/ML VIAL ONE (06:57)
[2023-06-08] MEDS ORDERED: FAMOTIDINE 20 MG/ 2 ML VIAL ONE (06:57)
[2023-06-08] MEDS ORDERED: KETOROLAC TROMETHAMINE 30 MG/ML VIAL ONE (06:57)
[2023-06-08] MEDS ORDERED: SUGAMMADEX SODIUM 200 MG/2 ML ML ONE (06:57)
[2023-06-08] MEDS ORDERED: LACTATED RINGER'S 1,000 ML IV ONE (06:57)
[2023-06-08] MEDS ORDERED: MIDAZOLAM HCL 2 MG/2 ML VIAL ONE (06:57)
[2023-06-08] MEDS ORDERED: fentaNYL citrate 100 MCG/2 ML VIAL ONE (06:57)
--- NOTE | 2023-06-08 07:20 | NUR ---
REPORT RECEVIED FROM SHEETMETAL PATTERNMAKER BRENDAN PAZ. PATIENT IS NOT IN THE ROOM AT THIS TIME AND IS DOWN FOR SURGERY.
[2023-06-08] MEDS ORDERED: ePHEDrine sulfate 50 MG/ML AMP ONE (08:26)
[2023-06-08] MEDS ORDERED: ATORVASTATIN 20 MG TAB PO SCH ×2 (09:00)
[2023-06-08] MEDS ORDERED: FAMOTIDINE 20 MG TAB PO SCH ×2 (09:00)
--- NOTE | 2023-06-08 09:01 | NUR ---
06/08/23 09 Yani Cassidy LE 0856: PT ARRIVES TO WITH OPA IN PLACE. SHE REQUIRES A JAW THRUST UPON ARRIVAL LE 900: PT WAKES UP AND ORAL AIRWAY IS REMOVED.
[2023-06-08] MEDS ORDERED: fentaNYL citrate 100 MCG/2 ML VIAL IV PRN (09:15)
[2023-06-08] MEDS ORDERED: PROCHLORPERAZINE EDISYLATE 10 MG/2 ML VIAL IV PRN ×2 (09:15)
[2023-06-08] MEDS ORDERED: IBLOOD GLUCOSE TEST STRIP 1 EA TEST VI PRN ×2 (09:15)
[2023-06-08] MEDS ORDERED: METOCLOPRAMIDE HCL 10 MG/2 ML SDV IV PRN ×2 (09:15)
[2023-06-08] MEDS ORDERED: droPERidol 5 MG/2 ML VIAL IV PRN (09:15)
[2023-06-08] MEDS ORDERED: NALOXONE HCL 0.4 MG SYR IV PRN ×2 (09:15)
[2023-06-08] MEDS ORDERED: MORPHINE SULFATE 10 MG/ML VIAL IV PRN (09:15)
[2023-06-08] MEDS ORDERED: ondansetron HCL 4 MG/2 ML VIAL IV PRN ×2 (09:15)
--- NOTE | 2023-06-08 09:38 | NUR ---
PATIENT ARRIVED TO THE UNIT VIA THE HOSPITAL BED. PATIENT IS ALERT AND RESPONSIVE. PATIENT IS IN NO PAIN AT THIS TIME. VITAL SINS TAKEN AND DOCUMENTED IN THE CHART. SCDS ARE ON.
[2023-06-08] MEDS ORDERED: OXYCODONE/APAP 7.5/325 TAB PO PRN ×2 (09:45)
--- NOTE | 2023-06-08 09:56 | NUR ---
PATIENT FULL ASSESSMENT COMPLETE AND DOCUMENTED IN THE CHART. PATIENT LUNG SOUNDS ARE CLEAR IN ALL LUNG FIENDS BILATERALLY. PATIENT IS ON 2 L NASAL CANNULA AND THERE IS A CPOX AT THE PATIENTS BEDSIDE. PATIENT VITAL SIGNS TAKEN AFTER ARRIVING TO THE UNIT AND THEY HAVE BEEN DOCUMENTED IN THE CHART. PATIENT CARDIAC WITH NORMAL S1 AND S2 AUSCULTATED. RADIAL AND PEDAL PULSES ARE STRONG WITH CAPILLARY REFILL IN THE UPPER AND LOWER EXTREMITIES BEING LESS THAN 3 SECONDS BILATERALLY. PATIENT WITH NO COMPLAINTS OF PAIN AT THIS TIME. PATIENT STATES FEELING HUNGRY AT THIS TIME. PATIENT BOWEL TONES ARE ACTIVE IN ALL FOUR QUADRANTS. PATIENT IS ALERT AND ORIENTED TIMES FOUR. PATIENT CHEST DRESSING IS CLEAN, DRY, AND INTACT. DEMETRIA DRAIN WITH SANGUINOUS DRAINAGE. IV SITE IS CLEAN, DRY, AND INTACT. IV CONTINUOUS FLUIDS ARE INFUSING AT THIS TIME. PATIENT REQUESTING FOOD. PATIENT STATED NO FURTHER NEEDS AT THIS TIME. CALL LIGHT AND PERSONAL BELONGINGS ARE WITHIN REACH.
--- NOTE | 2023-06-08 10:26 | NUR ---
ROUNDS. PT RECEIVING NURSING CARE. DID NOT INTERRUPT. PROVIDED PRAYER.
--- NOTE | 2023-06-08 10:46 | NUR ---
LUNCH ORDER HAS BEEN PLACED.
--- NOTE | 2023-06-08 12:17 | NUR ---
PATIENT GOT UP TO BEDSIDE COMMODE AND WAS ABLE TO VOID. PATIENT WITH NEW GOWN ON AND NEW CHUX PLACED IN THE BED. PATIENT DEMETRIA DRAIN IS FASTENED TO THE PATIENTS GOWN. THIRD SET OF POST-OP VITALS HAVE BEEN TAKEN AND ARE DOCUMENTED IN THE CHART. PATIENT IS BACK IN BED AND EATING LUNCH. PATIENT 1200 INSULIN ADMINISTERED PER THE EMAR. PATIENT STATED NO FURTHER NEEDS AT THIS TIME. CALL LIGHT AND PERSONAL BELONGINGS ARE WITHIN REACH.
--- NOTE | 2023-06-08 14:54 | NUR ---
PATIENT WITH NO PAIN AT THIS TIME. DRESSING ON THE CHEST IS CLEAN, DRY, AND INTACT. DEMETRIA DRAIN WITH SUTURE IS IN PLACE AND DRAINING SANGUINOUS FLUID. PATIENT POST OP VITALS ARE COMPLETE. PATIENT AMBULATED TO THE COMMODE IN THE BATHROOM WITH LITTLE HELP. PATIENT CONTINUOUS FLUIDS ARE INFUSING AT THIS TIME. SKIN ASSESSMENT COMPLETE AND DOCUMENTED IN THE CHART. PATIENT STATED NO FURTHER NEEDS AT THIS TIME. CALL LIGHT AND PERSONAL BELONGINGS ARE WITHIN REACH.
--- NOTE | 2023-06-08 16:40 | NUR ---
PT IV BEEPING, THIS RN TO BEDSIDE, EDUCATION ON STRAIGHTENING ARM FOR INFUSIONS, PT VERBALIZES UNDERSTANDING. PT STATES NO NEEDS AT THIS TIME, CALL LIGHT WITHIN REACH.
--- NOTE | 2023-06-08 18:34 | NUR ---
I WENT IN TO TAKE PATIENT VITALS AND SHE WAS STILL EATING DINNER SHE WAS JUST EATING IT SLOWLY. HER CALL LIGHT WAS NEAR AND SHE ASKED FOR A DIET SODA. SHE WAS SITTING UP IN HER BED EATING HER DINNER WATCHING TV.
--- NOTE | 2023-06-08 19:30 | NUR ---
received bedside report from edward cazares, pt awake and resting in bed. sba to bathroom to void. pt independent in room. sabrina drain wnl and secured to gown, dressing to right chest wall c/d/i, reinforced with additional tape on edges of dressing by edward bahena. pt denies additional needs or concerns, iv site wnl. fluids infusing wnl.
--- NOTE | 2023-06-08 20:00 | NUR ---
PT BACK FROM BATHROOM, RESUMED HER SCD'S; CPOX; COVERS PER CHOICE. FRESH ICE WATER GIVEN. VS COMPLETED. PT WITH CALL LIGHT WITHIN REACH; CELL PHONE WELL. NO OTHER NEEDS AT THIS TIME.
--- NOTE | 2023-06-08 20:30 | NUR ---
spoke w/ telepharmacy regarding pepcid administration, pt received dose in am in or and am dose on ms floor, per telepharmacy okay to give scheduled evening dose as pt's kidney function wnl.
--- NOTE | 2023-06-08 21:33 | NUR ---
ASSESSMENT COMPLETE, SCHEDULED EMDS GIVEN-SEE EMAR. pt REPORTS PAIN TOLERABLE 2/10, DENIES NEED FOR PAIN MEDICATION. DENIES NAUSEA. IV SITE WNL, FLUIDS INFUSING DIRECTED. pt UP SBA TO VOID AND BACK TO BED. DRESSING TO RIGHT CHEST WALL REMAINS WNL, C/D/I. DEMETRIA DRAIN SECURED TO GOWN, OUTPUT SANGINEOUS IN COLOR. pt BACK IN BED, SCD'S IN PLACE, CALL LIGHT IN REACH.
--- NOTE | 2023-06-08 23:10 | NUR ---
pt CALLED STATED SHE WAS BACK IN BED. pt CONNETED TO SCDS AND CPOX MACHINE. IV ASSESSED, WNL. pt DENIES ANY OTHER NEEDS AT THIS TIME. CALL LIGHT WITHIN REACH.
--- NOTE | 2023-06-08 23:30 | NUR ---
ROUNDED ON pt, pt AWAKE AND RESTING IN BED. NO NEEDS OR CONCERNS VERBALIZED. pt REPORTS TEMPERATURE IN ROOM IMPROVED FOLLOWING ADJUSTING THE THERMOSTAT. CALL LIGHT IN REACH.
--- NOTE | 2023-06-09 00:30 | NUR ---
report given to shruti mcneil, shruti mcneil to take over pt care at this time. report given, questions answered.
--- NOTE | 2023-06-09 00:37 | NUR ---
REPORT RECIEVED FROM OLGA CARDONA. pt RESTING IN THE BED. CALL LIGHT WITHIN REACH. CPOX ON. SCDS ON.
--- NOTE | 2023-06-09 02:36 | NUR ---
pt RESTING IN THE BED WITH EYES CLOSED. RR EVEN AND UNLABORED. CALL LIGHT WITHIN REACH.
--- NOTE | 2023-06-09 04:05 | NUR ---
pt RESTING IN BED WITH EYES CLOSED. RR EVEN AND UNLABORED. CALL LIGHT WITHIN REACH.
[2023-06-09 04:32] VITALS: BP 142/67
--- NOTE | 2023-06-09 04:45 | NUR ---
ASSESSMENT AND VITAL SIGNS DONE. DEMETRIA DRAINED. SS FLUID IN DRAIN. pt WOKE UP SWEATING. GOWN CHANGED. DRESSING, CDI. IV ASSESSED, WNL. VSS. pt UP TO BR. pt IND TO THE BR. WATER REFRESHED. CPOX ON. pt DENIES ANY OTHER NEEDS AT THIS TIME. CALL LIGHT WITHIN REACH.
--- NOTE | 2023-06-09 07:55 | NUR ---
STEAM GENERATING POWERPLANT MECHANIC ENTERED ROOM FOR A BGC. PT HAS NO COMPLAINTS OR CONCERNS. STEAM GENERATING POWERPLANT MECHANIC GAVE PT AN EXTRA PILLOW SO SHE COULD PROP ONE UP UNDERNEATH HER ARM. STEAM GENERATING POWERPLANT MECHANIC GAVE PT A WARM WASHCLOTH TO CLEAN OFF HER FACE. PT MENTIONED SHE WOULD LIKE TO HAVE A SHOWER LATER TODAY. CALL LIGHT WITHIN REACH
--- NOTE | 2023-06-09 07:57 | NUR ---
PT WAS RESTING WITH EYES CLOSED THIS MORNING DURING HANDOFF, O2 TUBING OFF, PT WOKEN AND REAPPLIED. PT DENIES PAIN. ICE WATER REFILLED. TV ON THIS MORNING, CURRENTLY AWAKEN AND TEXTING ON HER PHONE TO FRIENDS. ALL PT CARE NEEDS MET, CALL LIGHT WITHIN REACH. STUDENT ASSISTED PT UP TO BATHROOM THIS MORNING.
[2023-06-09 08:11] VITALS: BP 127/65
--- NOTE | 2023-06-09 09:52 | NUR ---
Entered room to find pt laying in bed, texting on phone. Pt denies any pain. Head to toe assessment completed with findings documented. Dressing change completed. No obvious signs of infection noted. Pt self ambulated to the bathroom to relieve herself. Pt urinated with no bowel movement this morning. Pt washed her face, brushed her teeth, brushed her hair, and changed her underwear independently. Bedding changed on bed. Pt self ambulated to the armchair. Pt has no unmet needs at this time. Pt left in armchair, on her phone. Call light within reach.
[2023-06-09 09:53] VITALS: BP 127/65
--- NOTE | 2023-06-09 10:15 | NUR ---
DRESSING CHANGED TO CHEST, BACITRACIN APPLIED WITH GAUZE/ABD PAD. PT DENIES PAIN, NO NAUSEA. CARLO DRAIN IN PLACE, WITH SANGUINEOUS DRAINAGE. PT ASSISTED UP TO BATHROOM, ORAL CARE DONE WITH CONSTRUCTION ENGINEER. ALL PT CARE NEEDS MET AT THIS TIME. CALL LIGHT WITHIN REACH.
--- NOTE | 2023-06-09 10:25 | NUR ---
PRODUCTION SUPPLY EQUIPMENT TENDER ENTERED ROOM AND RECORDED I&OS. PT REPORTED NO COMPLAINTS OR CONCERNS. CALL LIGHT WITHIN REACH
[2023-06-09 10:30] LABS: BASOPHILS 0.5 % (0-2); EOSINOPHILS 0.4 % (0-6); HEMATOCRIT 29.7 % (35.0-50.0); HEMOGLOBIN 9.8 g/dL (12.0-18.0); LYMPHOCYTES 14.8 % (24-44); MCH 29.7 (27-36); MCV 90.1 fl (81-99); MONOCYTES 6.6 % (0-12); NEUTROPHILS 77.7 % (39-80); PLATELET COUNT 246 K/uL (140-440); RDW 14.8 (10.5-15.0)
--- NOTE | 2023-06-09 11:34 | NUR ---
ROUNDS. PT EXHIBITED STRONG ROSA RESOURCES; REQUESTED PRAYER FOR LIFE CIRCUMSTANCES. PROVIDED HOSPITALITY; FACILITATED STORY-TELLING; PROVIDED FREQUENCY CHECKER EDUCATION; PROVIDED PRAYER. PT EXPRESSED GRATITUDE.
[2023-06-09] MEDS ORDERED: NICOTINE LOZENGE4 MG BUCCAL (11:45)
[2023-06-09] MEDS ORDERED: OXYCODON-ACETA1 EAC2 PO (11:46)
[2023-06-09] MEDS ORDERED: ACETAMINOPHEN500 MG PO (11:46)
[2023-06-09] MEDS ORDERED: ANTIBIOTIC28.4 GM TOP (11:49)
--- NOTE | 2023-06-09 12:04 | NUR ---
PT INFORMED WILL BE GOING HOME TODAY. LUNCH JUST PROVIDED TO PT, INSULIN GIVEN. PT UP TO BATHROOM WITHOUT ASSISTANCE NEEDED. ALL PT CARE NEEDS MET AT THIS TIME.
[2023-06-09 12:07] VITALS: BP 140/52
--- NOTE | 2023-06-09 12:20 | NUR ---
ACCOUNT SERVICES MANAGER ASSISTED PT IN GETTING HER BELONGINGS TOGETHER. ACCOUNT SERVICES MANAGER TOOK FINAL VITAL SIGNS BEFORE DISCHARGE. PT GOT DRESSED. NO COMPLAINTS
[2023-06-09] MEDS ORDERED: WARFARIN SODIUM5 MG PO (13:03)
== END 2023-06-09 13:26 | disposition home or self-care (01) ==
LOC: ED 04:55 → MS 04:57
PROVIDERS: Internal Medicine; ADMIT Surgery; ATTEND Surgery
PROC: 0J9630Z Drainage of Chest Subcutaneous Tissue and Fascia with Drainage Device, Percutaneous Approach (ICD-10-PCS; principal; 2023-06-07)
DX: S20.211A Contusion of right front wall of thorax, initial encounter (principal); E87.6 Hypokalemia; I10 Essential (primary) hypertension; E11.9 Type 2 diabetes mellitus without complications; E78.00 Pure hypercholesterolemia, unspecified; E66.01 Morbid (severe) obesity due to excess calories; F17.200 Nicotine dependence, unspecified, uncomplicated; Z79.01 Long term (current) use of anticoagulants; Z90.13 Acquired absence of bilateral breasts and nipples; Z68.41 Body mass index [BMI] 40.0-44.9, adult; Z88.1 Allergy status to other antibiotic agents; Z91.048 Other nonmedicinal substance allergy status; W18.30XA Fall on same level, unspecified, initial encounter
CPT/HCPCS: 00400; 36415; 36430; 36592; 70450; 71250; 80048; 80053; 80307; 81003; 83690; 83735; 85025; 85610; 86850; 86900; 86901; 90471; 90715; 93005; 93010; 94760; 94762; 96374; 96375; 96376; 99285-25; A9270; G0480; J0330; J1100; J1170; J1815; J1885; J1956; J2250; J2270; J2405; J2704; J2765; J3010; J3430; J3475; J3480; J3490; J7060; J7121; P9059

== ENCOUNTER 2024-06-11 08:00 | Emergency (ER) | payer MEDICARE, OTHER ==
[~2024-06-11] VITALS: Ht 167.6 cm; Wt 125.2 kg
[~2024-06-11 08:00] MED LIST changes: +ACETAMINOPHEN500 MG PO; +ANTIBIOTIC28.4 GM TOP; +ATORVASTATIN CA20 MG PO; +BUPROPION XL150 MG PO; +K-TAB ER20 MEQ PO; +METFORMIN HCL500 M1 PO; +NICOTINE LOZENGE4 MG BUCCAL; +OXYCODON-ACETA1 EAC2 PO; +QUETIAPINE FUMA25 MG PO; +RYBELSUS14 MG PO; +TORSEMIDE10 MG PO; +TRAMADOL HCL50 MG PO; +VITAMIN D21250 MCG PO
--- OUTSIDE RECORDS SUMMARY | 2024-06-11 08:04 | XMS ---
PreManage Notification: LATHA QUINN Security Coding Specialist Home Health Events 1 event(s) in the past 18 months Most recent security events: Elopement at [facility] 04/08/2023 13:58 - Patient eloped with IV in place. - Patient eloped before treatment completed. - Patient with suicidal and/or homicidal ideations eloped. Details: Patient LWBS. CRITERIA MET - Group Notification CARE PROVIDERS There are no care providers on record at this time. Laila has no Care Guidelines for this patient. E.D. VISIT COUNT (12 MO.) 1 [facility]. TOTAL 1 NOTE: Visits indicate total known visits. ED/C VISIT TRACKING (12 MO.) 06/11/2024 08:01 [facility] [place] TYPE: Emergency COMPLAINT: - WEAKNESS INPATIENT VISIT TRACKING (12 MO.) No inpatient visits to display in this time frame [email or web address]
[2024-06-11] MEDS ORDERED: SODIUM CHLORIDE 0.9% 1,000 ML IV ONE (08:15)
[2024-06-11] MEDS ORDERED: KETOROLAC TROMETHAMINE 15 MG/ML VIAL IV ONE (08:15)
[2024-06-11] MEDS ORDERED: ACETAMINOPHEN 500 MG TAB PO ONE (08:15)
[2024-06-11] MEDS ORDERED: ondansetron HCL 4 MG/2 ML VIAL IV ONE (08:15)
[2024-06-11 08:22] LABS: EOSINOPHILS 2.4 % (0-6); HEMATOCRIT 39.8 % (35.0-50.0); HEMOGLOBIN 13.3 g/dL (12.0-18.0); LYMPHOCYTES 24.3 % (24-44); MCH 30.2 (27-36); MCHC 33.4 g/dl (30-36); MCV 90.4 fl (81-99); MONOCYTES 7.5 % (0-12); NEUTROPHILS 64.8 % (39-80); PLATELET COUNT 344 K/uL (140-440); RDW 14.4 (10.5-15.0)
[2024-06-11 08:35] LABS: ALBUMIN 3.2 g/dL (3.4-5.0); ALBUMIN/GLOBULIN RATIO 0.71 (1.1-2.4); ANION GAP 14.9 (7-21); BILIRUBIN, TOTAL 0.8 mg/dL (0.2-1.0); BUN/CREATININE RATIO 11.25 (6.0-28.6); CALCIUM 9.5 mg/dL (8.5-10.1); CREATININE, SERUM 0.8 mg/dL (0.55-1.02); POTASSIUM 3.9 mmol/L (3.5-5.1); PROTEIN, TOTAL 7.7 g/dL (6.4-8.2)
[2024-06-11 08:48] LABS: CORONAVIRUS COVID-19 AG NEGATIVE (NEGATIVE); INFLUENZA A AG NEGATIVE (NEGATIVE); INFLUENZA B AG NEGATIVE (NEGATIVE)
[2024-06-11 09:27] LABS: BILIRUBIN, URINE NEGATIVE (negative); BLOOD/HGB, URINE NEGATIVE (Negative); KETONE, URINE TRACE (Negative); LEUK ESTERASE, URINE NEGATIVE (negative); NITRITE, URINE NEGATIVE (negative); PH, URINE 7.5 (5-7)
[2024-06-11] MEDS ORDERED: ONDANSETRON ODT8 MG PO (09:31)
[2024-06-11 09:53] VITALS: BP 126/73
[2024-06-12] MEDS ORDERED: ATOMOXETINE HCL40 MG PO (11:01)
[2024-06-12] MEDS ORDERED: PIOGLITAZONE HC15 MG PO (13:00)
[2024-06-12] MEDS ORDERED: VENTOLIN HFA18 GM INH (13:47)
[2024-06-12] MEDS ORDERED: POTASSIUM CHLO20 ME2 PO (13:52)
== END 2024-06-11 09:53 | disposition home or self-care (01) ==
LOC: ED 08:00
PROVIDERS: Emergency Medicine
DX: B34.9 Viral infection, unspecified (principal); I89.0 Lymphedema, not elsewhere classified; I10 Essential (primary) hypertension; E11.9 Type 2 diabetes mellitus without complications; F17.200 Nicotine dependence, unspecified, uncomplicated; Z88.1 Allergy status to other antibiotic agents; Z88.8 Allergy status to other drugs, medicaments and biological substances; Z79.899 Other long term (current) drug therapy; Z79.84 Long term (current) use of oral hypoglycemic drugs
CPT/HCPCS: 36415; 80053; 81003; 85025; 96374; 96375; 99283-25; A9270; J1885; J2405; J7030

== ENCOUNTER 2024-06-12 07:07 | Inpatient (IN) | payer MEDICARE, OTHER ==
[~2024-06-12] VITALS: Ht 167.6 cm; Wt 124.0 kg
[2024-06-12] VITALS (7 sets, daily range): BP systolic 106–135; BP diastolic 78–93
[~2024-06-12 07:07] MED LIST changes: +ONDANSETRON ODT8 MG PO
--- OUTSIDE RECORDS SUMMARY | 2024-06-12 07:12 | XMS ---
PreManage Notification: LATHA QUINN Security [employer] Events 1 event(s) in the past 18 months Most recent security events: Elopement at [facility] 04/08/2023 13:58 - Patient eloped with IV in place. - Patient eloped before treatment completed. - Patient with suicidal and/or homicidal ideations eloped. Details: Patient LWBS. CRITERIA MET - Group Notification - [facility] - 2 Visits in 30 Days CARE PROVIDERS There are no care providers on record at this time. Laila has no Care Guidelines for this patient. EMolly. VISIT COUNT (12 MO.) 2 [facility]. TOTAL 2 NOTE: Visits indicate total known visits. ED/UCC VISIT TRACKING (12 MO.) 06/12/2024 07:08 [facility] TYPE: Emergency COMPLAINT: - RT LEG SWELLING 06/11/2024 08:01 [facility] [place] TYPE: Emergency COMPLAINT: - WEAKNESS INPATIENT VISIT TRACKING (12 MO.) No inpatient visits to display in this time frame [email or web address]
[2024-06-12] MEDS ORDERED: LORazepam 2 MG/ML VIAL IV ONE (08:00)
[2024-06-12] MEDS ORDERED: SODIUM CHLORIDE 0.9% 1,000 ML IV PRN (08:00)
[2024-06-12 08:08] LABS: BASOPHILS 0.8 % (0-2); EOSINOPHILS 1.5 % (0-6); HEMATOCRIT 42.1 % (35.0-50.0); HEMOGLOBIN 14.2 g/dL (12.0-18.0); LYMPHOCYTES 21.3 % (24-44); MCH 30.3 (27-36); MCHC 33.8 g/dl (30-36); MCV 89.7 fl (81-99); MONOCYTES 8.1 % (0-12); NEUTROPHILS 68.3 % (39-80); PLATELET COUNT 358 K/uL (140-440); RBC 4.69 M/ul (4.3-5.7); RDW 14.4 (10.5-15.0)
[2024-06-12 08:18] LABS: ANION GAP 17.5 (7-21); BUN/CREATININE RATIO 11.23 (6.0-28.6); CALCIUM 9.5 mg/dL (8.5-10.1); CREATININE, SERUM 0.89 mg/dL (0.55-1.02); POTASSIUM 3.5 mmol/L (3.5-5.1)
[2024-06-12] MEDS ORDERED: diphenhydrAMINE HCL 50 MG/ML VIAL IV ONE (09:00)
[2024-06-12] MEDS ORDERED: CEFEPIME HCL/D5W 2 GM/100 ML PIGGYBACK IV ONE (09:00)
[2024-06-12] MEDS ORDERED: METOPROLOL SUCCINATE 100 MG TABCR PO SCH (10:01)
[2024-06-12] MEDS ORDERED: DULOXETINE HCL 60 MG CAP PO SCH (10:02)
[2024-06-12] MEDS ORDERED: buPROPion HCL XL 300 MG TAB.XL.24H PO SCH (10:03)
[2024-06-12] MEDS ORDERED: buPROPion HCL XL 150 MG TAB.XL.24H PO SCH (10:04)
[2024-06-12] MEDS ORDERED: IBLOOD GLUCOSE TEST STRIP 1 EA TEST XX PRN (10:15)
[2024-06-12] MEDS ORDERED: DEXTROSE 50% 50 ML SYR IV PRN ×2 (10:15)
[2024-06-12] MEDS ORDERED: DEXTROSE 5% 1,000 ML IV PRN (10:15)
[2024-06-12] MEDS ORDERED: GLUCAGON,HUMAN RECOMBINANT 1 MG/ML VIAL SUB-Q PRN (10:15)
[2024-06-12] MEDS ORDERED: ACETAMINOPHEN 325 MG TAB PO PRN (10:45)
[2024-06-12] MEDS ORDERED: ondansetron HCL 4 MG/2 ML VIAL IV PRN (10:45)
--- NOTE | 2024-06-12 11:00 | NUR ---
PT ADMISSION REPOORT RECIEVED FROM BRENDAN MORALES. PT TRANSPORTED TO MED/SURG FLOOR VIA WHEELCHAIR, ON RA. PT STOOD UP AND AMBULATED TO RESTROOM UPON ARIVAL TO PT ROOM 124. PT THEN AMBULATED SBA TO PT BED. PT ADMISSION INFORMATION PROCESSED AND PT IN BED WITH CALL LIGHT IN REACH. PT HAS NO CONCERNS AT THIS TIME.
[2024-06-12] MEDS ORDERED: ATOMOXETINE HCL40 MG PO (11:01)
--- NOTE | 2024-06-12 11:39 | NUR ---
PT SITTING UP IN BED ALERT AND ORIENTED, PT HAS NO CURRENT CONCERNS AT THIS TIME CALL LIGHT IN REACH.
[2024-06-12] MEDS ORDERED: PHARMACY RENAL DOSE ADJUSTMENT 1 DOSE MISC PO SCH (12:00)
[2024-06-12] MEDS ORDERED: IBLOOD GLUCOSE TEST STRIP 1 EA TEST XX SCH (12:00)
[2024-06-12] MEDS ORDERED: INSULIN LISPRO 100 UNIT/ML ML SUB-Q SCH (12:00)
--- NOTE | 2024-06-12 12:39 | NUR ---
PT SITTING UP IN BED EATING LUNCH, PT HAS NO CURRENT CONCERNS AT THIS TIME CALL LIGHT IN REACH.
--- NOTE | 2024-06-12 12:57 | NUR ---
ALERT AND ORIENTED IN BED. STATES SHE LIVES IN BASEMENT APARTMENT, BUT FEW STAIRS THE DOOR IS RIGHT BY HER PARKING SPOT. STATES SHE HAS A WALKER AND A CANE. DRIVES AT [place]. NO FINANCIAL CONCERNS AT THIS TIME. STATES SHE IS WORKING WITH PATIENT ADVOCATE AT [facility]. THEY ARE ASSISTING HER TO WORK WITH [employer] TO GET INTO A NEW PLACE TO LIVE IN THE [place]. STATES SHE HAS NO KNOWN NEEDS FOR HOME AT THIS TIME. WILL CHECK IN WITH HER AGAIN TO ENSURE THERE ARE NO CHANGES.
[2024-06-12] MEDS ORDERED: PIOGLITAZONE HC15 MG PO (13:00)
--- NOTE | 2024-06-12 13:38 | NUR ---
PATIENT IS IN BED AT THIS TIME, PLASTIC FIXTURE BUILDER CHARTED VITALS AND I&O'S. CALL LIGHT WITH IN REACH, NOTHING ELSE NEEDED AT THIS TIME.
[2024-06-12] MEDS ORDERED: VENTOLIN HFA18 GM INH (13:47)
[2024-06-12] MEDS ORDERED: POTASSIUM CHLO20 ME2 PO (13:52)
[2024-06-12] MEDS ORDERED: CEFEPIME HCL 2 GM in SODIUM CHLORIDE 0.9% 100 ML IV SCH (14:00)
--- NOTE | 2024-06-12 14:06 | NUR ---
PT CURRENTLY WORKING WITH PHYSICAL THERAPY. PT HAS NO NEEDS AT THIS TIME CALL LIGHT IN REACH.
[2024-06-12] MEDS ORDERED: CEFEPIME HCL 2 GM VIAL ONE ×2 (14:24→21:35)
--- NOTE | 2024-06-12 14:54 | NUR ---
PT LAYING IN BED IN ROOM. PT HAS BEEN EXPERIENCING FEELING OF BEING WARM, BUT STATES THIS HAS BEEN CHRONIC FOR THE PAST 15 YEARS. PT HAS NO COMPLAINTS AT THIS TIME CALL LIGHT IN REACH.
--- NOTE | 2024-06-12 14:54 | NUR ---
UR CLINICAL REVIEW: 2 MN FOR VERSALUS- PER FITTING ROOM OPERATOR MEET INPT CRITERIA FOR CELLULITIS WITH NEED FOR IV ABX [facility] INPT 06/12/24 @ 0945 ORDER MATCHES REG NO AUTH REQUIRED PER MEDICARE GUIDELINES DISCHARGE TO HOME WHEN STABLE
--- NOTE | 2024-06-12 15:31 | NUR ---
PATIENT CALLED TO GO TO THE BATHROOM. I ASSISTED HER TO THE BATHROOM AND GAVE HER A SHOWER CAP AND BATHWIPES TO WIPE DOWN WITH. SHE DENIED A SHOWER AT THTIS TIME. ASSISTED HER BACK TO BED. CALL LIGHT IN REACH. DENIES ANY OTHER NEEDS AT THIS TIME.
--- NOTE | 2024-06-12 16:02 | NUR ---
PT LAYING IN BED WITH LEGS ELEVATED BY PILLOW FOR COMFORT. PT HAS FRIEND IN ROOM AT BEDSIDE, PT HAS NO CONCERNS AT THIS TIME CALL LIGHT IN REACH.
--- NOTE | 2024-06-12 16:39 | NUR ---
MED REC COMPLETE
--- NOTE | 2024-06-12 16:46 | NUR ---
IN TO DO BLOOD SUGAR. PT AWAKE LAYING IN BED TALKING TO VISITOR. DENIES NEEDS AT THIS TIME. CALL LIGHT IN REACH.
[2024-06-12] MEDS ORDERED: DULOXETINE HCL 30 MG CAP PO SCH (17:00)
--- NOTE | 2024-06-12 18:40 | NUR ---
PT SITTING UP IN BED , PT HAS NO CURRENT CONCERNS AT THIS TIME, PT HAS CALL LIGHT IN REACH.
--- NOTE | 2024-06-12 19:28 | NUR ---
RECEIVED REPORT FROM BRENDAN GEORGE. PT SITTING AT EOB, REPORTING SOME NAUSEA. PT REQUESTING 7-UP FOR STOMACH. SINTA MAMMOGRAPHY SUPERVISOR TO GET 7-UP. CALL LIGHT WITHIN REACH.
--- NOTE | 2024-06-12 20:30 | NUR ---
PT RESTING IN BED, REPORTS BLE PAIN, BURNING. PRN TYLENOL ADMINISTERED. BG 161, REQUIRED SLIDING SCALE COVERAGE. HS MEDS ADMINISTERED PER EMAR. LS WITH EXP WHEEZES TO UPPER LOBES. MNPC. REPORTS BEING CURRENT SMOKER. HRR. BTA, LBM TODAY. MILD NAUSEA, PRN ZOFRAN GIVEN. VOIDS WNL. BLE REDDENED, RIGHT > LEFT. SKIN WARM AND TOUGHENED. NO DEFINITE REDDENED BORDERS NOTED. PPP. DENIES N/T. SL LAC WNL. CALL LIGHT WITHIN REACH.
[2024-06-12] MEDS ORDERED: QUETIAPINE FUMARATE 25 MG TAB PO SCH (21:00)
[2024-06-12] MEDS ORDERED: MELATONIN 3 MG TAB PO PRN (21:00)
[2024-06-12] MEDS ORDERED: GABAPENTIN 300 MG CAP PO SCH (21:00)
--- NOTE | 2024-06-12 21:54 | NUR ---
PT AWAKE, REPORTS RESTLESS LEGS. PT RECEIVED ROUTINE GABAPENTIN AT HS. IV ATB ADMINISTERED PER EMAR. LUE ELEVATED ON PILLOW FOR COMFORT.
[2024-06-12] MEDS ORDERED: CEFEPIME HCL/D5W 2 GM/100 ML PIGGYBACK IV SCH (22:00)
--- NOTE | 2024-06-12 22:39 | NUR ---
ASSISTED PT TO BR, VOIDS WNL. PT DOING OWN WASHUP TO PANNUS AND GROIN AREA-REPORTS SOME DISCOMFORT. BRIGHT RED RASH NOTED TO LEFT PANNUS AND BILAT GROIN. BARRIER CREAM APPLIED. NIO ORDER PLACED FOR ANTI-FUNGAL POWDER.
--- NOTE | 2024-06-12 23:17 | NUR ---
PT SLEEPING, SNORING. APPEARS COMFORTABLE.
[2024-06-13] VITALS (13 sets, daily range): BP systolic 106–122; BP diastolic 62–84
--- NOTE | 2024-06-13 00:57 | NUR ---
PT ASSISTED TO BR W/ SBA AND FWW. VOIDS WNL. IVF INFUSING.
--- NOTE | 2024-06-13 03:15 | NUR ---
APPEARS ASLEEP, APPEARS COMFORTABLE.
--- NOTE | 2024-06-13 04:59 | NUR ---
PT ASLEEP, APPEARS COMFORTABLE.
[2024-06-13] MEDS ORDERED: CEFEPIME HCL 2 GM VIAL ONE (05:20)
--- NOTE | 2024-06-13 05:43 | NUR ---
PT ASSISTED TO BR AFTER AM LAB DRAW. VOIDS WNL. IV ATB STARTED VIA LAC IV. NO CHANGE TO BLE REDNESS AND WARMTH. FRESH ICE WATER PROVIDED. PT CALLING IN BREAKFAST ORDER.
[2024-06-13 05:49] LABS: BASOPHILS 1.2 % (0-2); EOSINOPHILS 2.8 % (0-6); HEMATOCRIT 40.3 % (35.0-50.0); HEMOGLOBIN 13.3 g/dL (12.0-18.0); LYMPHOCYTES 29.1 % (24-44); MCH 29.8 (27-36); MCHC 32.9 g/dl (30-36); MCV 90.6 fl (81-99); MONOCYTES 10.7 % (0-12); NEUTROPHILS 56.2 % (39-80); PLATELET COUNT 322 K/uL (140-440); RBC 4.45 M/ul (4.3-5.7); RDW 14.4 (10.5-15.0)
[2024-06-13 05:58] LABS: ANION GAP 13.7 (7-21); BUN/CREATININE RATIO 15.58 (6.0-28.6); CREATININE, SERUM 0.77 mg/dL (0.55-1.02); MAGNESIUM 1.8 mg/dL (1.8-2.4); POTASSIUM 3.7 mmol/L (3.5-5.1)
--- NOTE | 2024-06-13 07:28 | NUR ---
PATIENT IN BED AT THIS TIME. DRY GOODS CLERK ASSISTED PATIENT TO BATHROOM AND THEN BACK TO BED. CALL LIGHT WITHIN REACH, NO FURTHER NEEDS AT THIS TIME.
--- NOTE | 2024-06-13 07:38 | NUR ---
RECEIVED REPORT FROM JOHANNY HANSON. PT RESTING IN BED, RESPIRATIONS UNLABORED. ALL PT CARE NEEDS MET, PT ALLOWED TO SLEEP, CALL LIGHT WITHIN REACH.
--- NOTE | 2024-06-13 07:57 | NUR ---
PATIENT GIVEN 2 TYLENOL FOR 5/10 LEFT LEG PAIN. PATIENT HAS LEFT LEG ELEVATED ON PILLOW. DESENEX POWDER ORDERED FOR RASH IN PANNUS AREA.
--- NOTE | 2024-06-13 08:47 | NUR ---
PATIENT IS IN BED AT THIS TIME, SR. UNIX SYSTEM ADMINISTRATOR CHARTED VITALS AND I&O'S. GOT SUPPLYS READY FOR A SHOWER, CALL LIGHT WITH IN REACH. NOTHING ELSE NEEDED AT THIS TIME.
[2024-06-13] MEDS ORDERED: ENOXAPARIN SODIUM 40 MG/0.4 ML SYR SUB-Q SCH (09:00)
[2024-06-13] MEDS ORDERED: MICONAZOLE NITRATE 1 EA BTL TOP SCH ×2 (09:00)
--- NOTE | 2024-06-13 09:57 | NUR ---
SPOKE WITH PATIENT REGARDING DC PLAN. STATES SHE IS CURRENTLY SEEN AT [facility]S OUTPATIENT PT/OT. STATES SHE IS COMFORTABLE CONTINUING THAT. ALSO DISCUSSED POTENTIAL NEED FOR INPT REHAB PER PT REQUEST. STATES THAT WOULD BE SOMETHING SHE WOULD ALSO BE INTERESTED IN SO SHE HEALS AND GETS HER STRENGTH QUICKLY POSSIBLE. STATES SHE IS FEELING MUCH BETTER TODAY. INFORMED HER AFTER PT WORKS WITH HER TODAY, WILL SEE IF RECOMMENDATION IS STILL INPT REHAB OR OUTPATIENT PT AND PROCEED FROM THERE. WILL RETURN TO SPEAK WITH PATIENT THIS AFTERNOON.
--- NOTE | 2024-06-13 10:28 | NUR ---
PT NOT AVAILABLE FOR VISIT. PROVIDED PRAYER.
--- NOTE | 2024-06-13 11:16 | NUR ---
PT JUST SHOWERED, BACK IN BED. DESENEX APPLIED TO BILATERAL GROIN, (R) PANNUS FOLD, BOTH VERY RED/EXCORIATED. PATIENT REQUESTING HELP PLUGGIN IN HER PHONE. CALL LIGHT WITHIN REACH, DENIES FURTHER NEEDS AT THIS TIME. LEFT WATCHING TV IN BED.
--- NOTE | 2024-06-13 11:22 | NUR ---
PATIENT IS IN BED AT THIS TIME, CLIENT SERVICE PROFESSIONAL ASSISTED WITH SHOWER, CHANGED BEDDING. ASSISTED BACK TO BED GOT FRESH WATER. CALL LIGHT WITH IN REACH, NOTHING ELSE NEEDED AT THIS TIME.
--- NOTE | 2024-06-13 13:52 | NUR ---
PATIENT IS IN HER CHAIR AT THIS TIME, ARCH CUSHION SKIVING MACHINE OPERATOR GOT PATENT FRESH WATER. CHARTED VITALS AND I&O'S, NOTHING ELSE NEEDED AT THIS TIME.
[2024-06-13] MEDS ORDERED: CEFEPIME HCL 1 GM in SODIUM CHLORIDE 0.9% 100 ML IV SCH (14:00)
[2024-06-13] MEDS ORDERED: CEFEPIME HCL 2 GM in DEXTROSE 5% 100 ML IV SCH (14:00)
[2024-06-13] MEDS ORDERED: CEFEPIME HCL 1 GM VIAL ONE ×2 (14:07→19:41)
--- NOTE | 2024-06-13 14:20 | NUR ---
AFTER WORKING WITH PT/OT TODAY, RECOMMEND OUTPATIENT PT/OT. DISCUSSED THIS WITH PATIENT WHO IS IN AGREEANCE. STATES SHE WOULD LIKE TO GO HOME WITH OUTPATIENT THERAPIES. NO OTHER CM NEEDS AT THIS TIME.
--- NOTE | 2024-06-13 14:22 | NUR ---
PT CURRENTLY SITTING UP IN THE CHAIR AT THIS TIME, TALKING ON THE PHONE WITH FRIEND. IV ABX STARTED AT THIS TIME. PT C/O PAIN IN SHOULDERS/LEGS 10/02 AT THIS TIME, PRN MEDS GIVEN - SEE MAR. PT DENIES ANY FURTHER NEEDS AT THIS TIME, CALL LIGHT WITHIN REACH. ALL PT CARE NEEDS MET.
--- NOTE | 2024-06-13 14:51 | NUR ---
PT ASSISTED FROM CHAIR TO BATHROOM, SBA WITH CANE FOR LINES MGMT. PT REMINDED TO TAKE IT SLOW WHEN SHE WAS GETTING UP. PT ASSISTED BACK TO BED. IV ABX REMAINS INFUSING. CALL LIGHT WITHIN REACH. DENIES ANY FURTHER NEEDS AT THIS TIME.
[2024-06-13] MEDS ORDERED: guaiFENesin 600 MG TABCR PO PRN (15:45)
--- NOTE | 2024-06-13 15:47 | NUR ---
PER PATIENT REQUESTMD YE GAVE TELEPHONE ORDER FOR MUCINEX 600MG, BID PRN. ORDERS INPUT. NO OTHER ISSUES/CONCERNS.
--- NOTE | 2024-06-13 16:00 | NUR ---
PATIENT WAS TOLD TO TAKE A WALK THIS EVENING BY PT. SO WE TOOK A LAP AROUND THE NURSES STATION. PATIENT ALSO ASKED FOR SOMETHING FOR THE PHLEGM IN HER THROAT, NURSE WAS NOTIFIED. BACK TO HER ROOM AND IN BED WAITING FOR DINNER. CALL LIGHT WITH IN REACH, NOTHING ELSE NEEDED AT THIS TIME.
--- NOTE | 2024-06-13 17:36 | NUR ---
PT RESTING IN BED WATCHING TV, IN GOOD SPIRITS. SHE HAS BEEN ON THE PHONE TALKING WITH FAMILY RECENTLY. DINNER TRAY DELIVERED, GOOD APPETITE. PATIENT STATES PAIN IMPROVED 3/10 WITH PRN TYLENOL. DENIES ANY FURTHER NEEDS AT THIS TIME, CALL LIGHT WITHIN REACH.
--- NOTE | 2024-06-13 17:52 | NUR ---
PATIENT GIVEN MUCINEX, REQUESTED TYLENOL. PATIENT KNOWS THAT NEXT TYLENOL IS AVAILABLE AFTER 8PM.
--- NOTE | 2024-06-13 19:42 | NUR ---
RECEIVED REPORT FROM BRENDAN VINSON. PT RESTING IN BED VISITING W/ FRIEND. REPORTS RLE PAIN NOT BEING RELEIVED BY PRN TYLENOL. DR. ZUNIGA NOTIFIED AT NURSES STATION. NEW ORDERS PLACED.
[2024-06-13] MEDS ORDERED: TRAMADOL HCL 50 MG TAB PO PRN (19:45)
--- NOTE | 2024-06-13 21:13 | NUR ---
COMPLIANCE MANAGER OBTAINED VITALS AND I&O. PT STATES NO NEEDS AT THIS TIME. CALL LIGHT WITHIN REACH.
--- NOTE | 2024-06-13 21:54 | NUR ---
PT RESTING IN BED, FRIEND AT BEDSIDE. NEW PRN ULTRAM ADMINISTERED FOR C/O RLE & BILAT SHOULDER PIN 11/01. PT ASSISTED TO BR, SBA W/ CANE. VOIDS WNL. PT DID OWN WASHUP IN BR TO PANNUS AND GROIN W/ SOAP AND WATER. LS COARSE TO UPPERS. MNPC. HRR. BTA, LBM TODAY. SL LAC INFUSING ATB-POSITIONAL. BLE REDNESS AND SLIGHTLY WARM, RIGHT > LEFT. NO REAL BORDERS NOTED TO REDNESS TO MCKENZIE. 2+ EDEMA TO BLE, LYMPHEDEMA TO RUE. PT HAS COMPRESSION SLEEVES TO RUE AND BLE. PPP X4. BLE COOL, CAP REFILL > 3 SECS. DESENEX POWDER APPLIED TO LEFT GROIN AND BILAT GROIN REDNESS. CALL LIGHT WITHIN REACH.
--- NOTE | 2024-06-13 21:59 | NUR ---
LAC IV DRSG CHANGED, IV POSITION ADJUSTED. PT ASSISTED TO BR, SBA W/ CANE. PT NEEDS CUEING TO SLOW DOWN. DENIES PAIN AT THIS TIME. RLE COMPRESSION SLEEVE REMOVED PER PT REQUEST.
--- NOTE | 2024-06-13 23:10 | NUR ---
COUNTER POCKET SEWER SBA TO BATHROOM. PT VOIDED AND ASSISTED BACK TO BED. ICE WATER REFILLED. PT STATES NO FURTHER NEEDS AT THIS TIME. CALL LIGHT WITHIN REACH.
--- NOTE | 2024-06-13 23:23 | NUR ---
PT ASSISTED TO BR BY CLOTH DOUBLING MACHINE OPERATOR. PT DENIES ANY OTHER NEEDS.
--- NOTE | 2024-06-14 00:20 | NUR ---
PTS IV BEEPING. REPORTS BILAT SHOULDER PAIN-REQUESTS PRN PAIN MED BEFORE GOING TO SLEEP. PRN TYLENOL ADMINISTERED.
--- NOTE | 2024-06-14 00:58 | NUR ---
PTS IV BEEPING. IV ATB RESTARTED. ASSISTED PT TO BR, SBA W/ CANE. VOIDS WNL. GHRAHAM CRACKERS PROVIDED PER REQUEST.
[2024-06-14] MEDS ORDERED: CEFEPIME HCL 1 GM VIAL ONE ×2 (01:55→07:44)
--- NOTE | 2024-06-14 02:11 | NUR ---
PT AWAKE, STARTING TO GET SLEEPY. IV ATB INFUSING.
--- NOTE | 2024-06-14 03:07 | NUR ---
PT AWAKE, REPORTS DIFFICULTY SLEEPING TONIGHT. GETTERER TO TAKE PT TO BR.
--- NOTE | 2024-06-14 03:33 | NUR ---
HOG RAISER SBA TO BATHROOM. PT VOIDED AND ASSISTED BACK TO BED. PT STATES NO FURTHER NEEDS AT THIS TIME. CALL LIGHT WITHIN REACH.
--- NOTE | 2024-06-14 04:24 | NUR ---
PT ASSISTED TO BR. IV ATB INFUSING. DENIES ANY OTHER NEEDS.
[2024-06-14 05:31] LABS: BASOPHILS 1.9 % (0-2); EOSINOPHILS 3.8 % (0-6); HEMATOCRIT 38.2 % (35.0-50.0); HEMOGLOBIN 12.3 g/dL (12.0-18.0); LYMPHOCYTES 28.1 % (24-44); MCH 29.4 (27-36); MCHC 32.3 g/dl (30-36); MCV 91.1 fl (81-99); MONOCYTES 8.9 % (0-12); NEUTROPHILS 57.3 % (39-80); PLATELET COUNT 268 K/uL (140-440); RDW 14.6 (10.5-15.0)
[2024-06-14 05:39] LABS: ANION GAP 13.4 (7-21); BUN/CREATININE RATIO 22.5 (6.0-28.6); CALCIUM 8.9 mg/dL (8.5-10.1); CREATININE, SERUM 0.8 mg/dL (0.55-1.02); MAGNESIUM 1.8 mg/dL (1.8-2.4); POTASSIUM 3.4 mmol/L (3.5-5.1)
[2024-06-14 06:00] VITALS: BP 114/91
--- NOTE | 2024-06-14 06:04 | NUR ---
CABINET WORKER OBTAINED VITALS AND I&O. PT STATES NO NEEDS AT THIS TIME. ICE WATER REFILLED AND CALL LIGHT WITHIN REACH.
[2024-06-14 06:36] VITALS: BP 114/91
--- NOTE | 2024-06-14 07:17 | NUR ---
REPORT RECEIVED FROM FIELD ASSOCIATE RN VALENTIN. PATIENT IS LYING IN BED WITH EYES OPEN AND RESPIRATIONS ARE EVEN AND UNLABORED. PATIENT STATED NO NEEDS AT THIS TIME. CALL LIGHT AND PERSONAL BELONGINGS ARE WITHIN REACH.
--- NOTE | 2024-06-14 08:13 | NUR ---
0800 AND 0900 MEDICATIONS ADMINISTERED PER THE EMAR. PATIENT IS EATING BREAKFAST AT THIS TIME. IV IN THE LAC FLUSHED WITH 10 ML MORMAL SALINE. CEFEPIME INFUSION IS RUNNING AT THIS TIME. IV SITE WITH WASGH CLOTH AND WRAPPED TO HELP WITH OCCLUDING. PATIENT EDUCATED TO CALL FOR ANY PAIN OR BURNING AT THE IV SITE. PATIENT EXPRESSED UNDERSTANDING. PATUIENT STATED NO FURTHER NEEDS AT THIS THIS TIME. CALL LIGHT AND PERSONAL BELONGINGS ARE WITHIN REACH.
[2024-06-14] MEDS ORDERED: POTASSIUM CHLORIDE 10 MEQ TABCR PO ONE (09:00)
--- NOTE | 2024-06-14 09:20 | NUR ---
INTO SEE PATIENT. PATIENT STATES CONCERN OF GETTING DISCHARGED IN FEAR OF JUST COMING BACK TO THE HOSPITAL. LET PATIENT KNOW TO TALK TO MD ABOUT IT. LET PATIENT HAS A COUPLE FRIENDS TO DRIVE HER HOME AT DISCHARGE. NO CM NEEDS AT THIS TIME WILL CHECK IN LATER.
[2024-06-14 09:23] VITALS: BP 121/81
[2024-06-14 09:40] VITALS: BP 121/81
[2024-06-14] MEDS ORDERED: TRAMADOL HCL50 MG PO (09:53)
[2024-06-14] MEDS ORDERED: LEVOFLOXACIN750 MG PO (09:55)
--- NOTE | 2024-06-14 09:55 | NUR ---
PATIENT IS LYING IN BED WITH HOB ELEVATED. FULL ASSESSMENT COMPLETE AND DOCUMENTED IN THE CHART. PATIENT IS ALERT AND ORIENTED TIMES FOUR. PATIENT RATED PAIN 5/10 IN THE RLE AND SHOULDERS. PATIENT IS NOT REQUESTING ANYTHING FOR PAIN AT THIS TIME. CARDIAC WITH NORMAL S1 AND S2 ON AUSCULTATION. RADIAL AND PEDAL PULSES ARE STRONG BILATERALLT. SENSATION INTACT WITH NO COMPLAINTS OF NUMBNESS OR TINGLING. COMPRESSION SLEEVES ON THE BLE AND THE RIGHT ARM. SKIN WITH REDNESS NOTED TO THE BLE, WITH THE REDNESS GREATER IN THE RIGHT LEG THAN THE LEFT. REDNESS UNDER THE PANNUS NOTED. SCAR NOTED TO THE BILATERAL BREASTS. IV WITH CEFEPIME INFUSING AT THIS TIME. IV SITE IS INTACT. PATIENT IS ON A 60 GRAM CARB DIET AND BOWEL TONES ARE ACTIVE IN ALL FOUR QUADRANTS. PATIENT IS ON ROOM AIR WITH A NON-PRODUCTIVE COUGH NOTED. LUNG SOUNDS ARE CLEAR IN THE UPPER LOBES AND DIMINISHED IN THE BASES BILATERALLY. PATIENT STATED NO FURTHER NEEDS AT THIS TIME. CALL LIGHT AND PERSONAL BELONGINGS ARE WITHIN REACH.
--- NOTE | 2024-06-14 10:09 | NUR ---
Tiara has been provided her IMM letter for discharge, she waives the 4 hour discharge criteria. The letter has been explained in detail, including the appeal process, should she decide to appeal her discharge. Tiara is awake, alert, and oriented X3. She comments that her care has been exceptional, and that she understands her discharge plan, and her continued care needs upon discharge.
--- NOTE | 2024-06-14 10:30 | NUR ---
PATIENT RESTING IN BED. ASKING FOR [place], BUT DENIES ANY OTHER NEEDS AT THIS TIME. CALL LIGHT AND PERSONAL BELONGINGS WITHIN REACH.
--- NOTE | 2024-06-14 11:05 | NUR ---
PATIENT SITTING AT EDGE OF BED. REQUESTING NEW COMPRESSION SLEEVE FOR RIGHT ARM. DENIES ANY OTHER NEEDS AT THIS TIME. ANTIBIOTIC CONTINUES INFUSING. CALL LIGHT AND PERSONAL BELONGINGS WITHIN REACH.
== END 2024-06-14 12:00 | disposition home or self-care (01) | DRG 603 ==
LOC: ED 07:07 → MS 10:07
PROVIDERS: Emergency Medicine; ADMIT Student in an Organized Health Care Education/Training Program; ATTEND Student in an Organized Health Care Education/Training Program
DX: L03.115 Cellulitis of right lower limb (principal); E11.9 Type 2 diabetes mellitus without complications; F39 Unspecified mood [affective] disorder; E87.6 Hypokalemia; I10 Essential (primary) hypertension; Z66 Do not resuscitate; Z90.13 Acquired absence of bilateral breasts and nipples; Z85.3 Personal history of malignant neoplasm of breast; E66.9 Obesity, unspecified; Z88.8 Allergy status to other drugs, medicaments and biological substances; Z91.041 Radiographic dye allergy status; E78.00 Pure hypercholesterolemia, unspecified; F17.210 Nicotine dependence, cigarettes, uncomplicated; Z98.49 Cataract extraction status, unspecified eye; Z90.722 Acquired absence of ovaries, bilateral; Z96.652 Presence of left artificial knee joint; Z96.662 Presence of left artificial ankle joint; Z96.661 Presence of right artificial ankle joint; Z98.890 Other specified postprocedural states; Z68.36 Body mass index [BMI] 36.0-36.9, adult
CPT/HCPCS: 36415; 80048; 83605; 83735; 85025; 87040; 93306; 93971; 96365; 96375; 97116; 97161; 97165; 97530; 99284-25; A9270; J0692; J1200; J1650; J1815; J2060; J2405; J7030